=== PATIENT | male | born 1960 | race Caucasian/White ===

== ENCOUNTER 2024-08-04 13:25 | Inpatient (IN) | payer BC, SELFPAY ==
[2024-08-04] VITALS (16 sets, daily range): BP systolic 89–164; BP diastolic 69–107; BMI 21.3
[2024-08-04 11:41] LABS: % Basophils 0.9 % (0-2); % Eosinophils 4.8 % (0-6); % Immature Granulocytes 0.1 % (0-0.5); % Lymphocytes 49.5 % (20.5-51.1); % Monocytes 6.8 % (1.7-9.3); % Neutrophils 37.9 % (42.2-75.2); Absolute Basophils 0.1 10^3/uL (0-0.2); Absolute Eosinophils 0.4 10^3/uL (0-0.7); Absolute Lymphocytes 4.3 10^3/uL (1.2-3.4); Absolute Monocytes 0.6 10^3/uL (0.1-0.6); Absolute Neutrophils 3.3 10^3/uL (1.4-6.5); Hematocrit 45.5 % (39.0-52.0); Hemoglobin 15.7 g/dL (13.0-18.0); Mean Corp Hgb Conc. 34.5 g/dL (33.0-37.0); Mean Corpuscular Hgb 31.9 pg (27.0-31.0); Mean Corpuscular Volume 92.5 fL (80.0-94.0); Mean Platelet Volume 11.5 fL (7.4-10.4); Nucleated Red Blood Cells % 0 % (-); Platelet Count 226 10^3/uL (130-400); Red Blood Cell Count 4.92 10^6/uL (4.70-6.10); Red Cell Dist. Width 11.9 % (11.5-14.5); White Blood Cell Count 8.6 10^3/uL (4.8-10.8)
[2024-08-04 11:46] LABS: ALT (SGPT) 21 U/L (0-50); AST (SGOT) 22 U/L (17-59); Albumin 4.6 g/dl (3.5-5.0); Alkaline Phosphatase 67 U/L (38-126); Blood Urea Nitrogen 13 mg/dl (9-20); Calcium 9.8 mg/dl (8.4-10.2); Carbon Dioxide 29 mmol/L (22-30); Chloride 102 mmol/L (98-107); Glucose 111 mg/dl (70-99); Potassium 4.3 mmol/L (3.5-5.1); Sodium 140 mmol/L (135-145); Total Bilirubin 1.1 mg/dl (0.2-1.3); Total Protein 7.5 g/dl (6.3-8.2); eGFR > 60.00
[2024-08-04 12:00] LABS: Troponin I 0.127 ng/ml
[2024-08-04] MEDS: LOW STRENGTH ASPIRIN 324 MG PO (12:12)
--- NOTE | 2024-08-04 12:23 | ED.GENMED ---
History of Present Illness
General
Chief Complaint: Dizziness
Source: patient
Exam Limitations: none
Time Seen by Provider: 08/04/24 12:06
Nursing documentation reviewed up to this point in time: agreed with
History of Present Illness
History of Present Illness:
64 yo male with no PMHX presents for chest pain. 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 CP then was 4/10, now it's
2/10. Denies SOB, nausea, lightheadedness.
Past History
Past History
ED Past Medical History: None
ED Past Surgical History: None
Social History
Tobacco: Non-smoker
Alcohol: None
Personal: Partner
Review of Systems
Review of Systems
Allergies reviewed?: Yes
All Other Systems: ROS reviewed and negative except as documented in HPI and ROS
Constitutional: Denies fever or fatigue
Respiratory: Denies trouble breathing
Cardiac: Reports chest pain and diaphoresis; Denies palpitations or syncope
ABD/GI: Denies abdominal pain, nausea, vomiting or diarrhea
Musculoskeletal: Reports no symptoms
Skin: Reports no symptoms
Neurological: Reports no symptoms
Phy Exam
Physical Exam
Physical Exam:
GENERAL: No acute distress. A&Ox3.
CONSTITUTIONAL: Afebrile.
EYES: clear, conjunctivae normal
ENMT: moist mucus membranes, Pharynx nl
RESPIRATORY: Regular respirations, nonlabored, lungs clear.
CARDIOVASCULAR: Regular rate and rhythm, no murmurs, no rubs.
GI: Soft, nontender, normal BS
MUSCULOSKELETAL: Moves with ease. Well perfused.
SKIN: Warm, dry, pink
PSYCH: Normal mood and affect. Well kept, interactive and appropriate
NEUROLOGIC: Awake, alert and oriented. No focal neurological deficits
Course
Orders/Labs/Results
Orders:
Orders
08/04/24 11:11
Electrocardiogram (*1) Urgent
Reason for Study: Chest Pain
08/04/24 11:12
EKG- Treatment ONCE
08/04/24 11:21
Complete Blood Count/With Diff Urgent
Comprehensive Metabolic Panel Urgent
TSH Reflex To Free T4 Urgent
Troponin I Urgent
08/04/24 12:11
Aspirin Chewable [Low Strength Aspirin] 324 mg .ROUTE .STK-MED ONE
Aspirin Chewable [Low Strength Aspirin] 324 mg PO NOW STA
08/04/24 12:22
Electrocardiogram (*1) Urgent
Reason for Study: Chest Pain
EKG- Treatment ONCE
08/04/24 12:39
Heparin 4,000 units IV NOW STA
Nursing to Place Non Medication Order As Directed
Physician Order: PTT 6 hours after initial start of Heparin infusion
Above order entered?: Yes
08/04/24 12:45
Admit/Transfer Patient As Directed
Co-Sign Provider:
Level of Care: Inpatient admission
Assign to:: IVU
Physician / Group: CBC
Diagnosis: ACS
Reason for Hospitalization: ACS
Expected length of stay greater than two midnights?: Yes
ELOS- Estimated Length of Stay in days: 3
I certify the patient meets the requirements for IP care: Yes
Code Status As Directed
Resuscitation Status: Full Code
Heparin 63708 Units/250 ml 25,000 units in 250 ml IV PER PROTOCOL
Weight to be used for heparin protocol in kilograms (kg):: 67.4
Protocol:: Cardiac Tx/Acute Coronary
PTT Goal Range to be used:: PTT 73 to 111 seconds
Order type:: Initial
INITIAL Infusion Dose (UNITS/KG/hr) & then follow protocol:: 12 units/kg/hr
Infusion Dose in UNITS/hr & then follow protocol (UNITS/hr):: 800
INFUSION RATE in mL/hr & then follow protocol (mL/hr):: 8
PTT less than or equal to 64 seconds:: Increase rate by 200 units/hr (+ 2 mL/hr)
PTT 64.1 to 72.9 seconds:: Increase rate by 100 units/hr (+ 1 mL/hr)
PTT 73 to 111 seconds:: Target Range. No change in rate.
PTT 111.1 to 130.9 seconds:: Decrease rate by 100 units/hr (- 1 mL/hr)
PTT 131 to 199.9 seconds:: HOLD for 1 hr. Then decrease rate by 200 units/hr (- 2 mL/hr)
PTT greater than or equal to 200 seconds:: HOLD for 2 hrs & Notify Provider. Then decrease by 200 units/hr (-
2 mL/hr)
Lab follow-up:: Each change, PTT q6h until 2 consecutive are therapeutic. Then PTT
daily.
PRN Pain Medication Management As Directed
May give lesser potent ordered pain med per pt: Yes
preference::
Protocol:: Medication orders for pain may be administered in a
manner that supports deferring to patient preference
when the pt is:
- Requesting an ordered lesser potent pain medication.
Least to most potent pain medications are defined
as: acetaminophen < NSAID < tramadol < opioids
(morphine, oxycodone, hydromorphone).
- Requesting a lesser dose of the same medication IF
ORDERED.
- Requesting a less intrusive route of administration
if both routes are prescribed by the provider (PO <
IV).
08/04/24 12:48
Echo 2D MMode Color/Doppler Urgent
Reason for Study: Chest pain
08/04/24 12:53
Lorazepam [Ativan] 0.5 mg IV NOW STA
Nitroglycerin Sublingual [Nitrostat (Sublingual)] 0.4 mg SL NOW STA
Nitroglycerin Sublingual [Nitrostat (Sublingual)] 0.4 mg SL [id number] PRN
08/04/24 12:59
PTT Urgent
Comment: Obtain baseline before beginning heparin infusion if not already collected
08/04/24 13:00
Nitroglycerin 100 mg/250 ml [Nitroglycerin Premix] 100 mg in 250 ml IV PER PROTOCOL
Initial dose in mcg/min, then titrate:: 5
Titrate to keep:: Chest Pain Free
Titrate by mcg/min:: 5 mcg/min, may increase by 10 mcg/min if dose > 20 mcg/min
Frequency of titrations (minutes):: every 3-5 minutes
Maximum dose in mcg/min:: 200
Begin to taper infusion when:: Remained at goal for 2hrs
Taper by mcg/min:: 5 mcg/min
Frequency of taper (minutes) if patient maintains goal:: 30
Taper to off?: Yes
If infusion off & no longer maintaining goal:: Contact Provider
08/04/24 13:06
Heparin 1000 Units/500 ml [Heparin] 1,000 units in 500 ml .ROUTE .STK-MED
Heparin Sodium,Porcine/Ns/Pf [Heparin 2000 Units/1000 ml] 2,000 unit in 1,000 ml .ROUTE .STK-MED
Lidocaine HCl/Pf [Xylocaine-Mpf 1% Vial] 100 mg .ROUTE .STK-MED ONE
Nitroglycerin [Tridil] 1,500 mcg .ROUTE .STK-MED ONE
Verapamil Injectable [Isoptin/Verapamil Injection] 5 mg .ROUTE .STK-MED ONE
08/04/24 13:09
Fentanyl Citrate/Pf [Sublimaze] 100 mcg .ROUTE .STK-MED ONE
Heparin 10,000 units .ROUTE .STK-MED ONE
Midazolam HCl [Versed] 2 mg .ROUTE .STK-MED ONE
08/04/24 15:56
VTE Contraindication Routine
VTE Mechanical Device Contraindication: Medical Contraindication
Pharmocologic Contraindication: Medical Contraindication
Activity As Directed
Activity Level: Bathroom Privileges
ECG as needed As Directed
ECG as needed for:: Chest Pain
INT (Intravenous Needle Therapy) As Directed
Comment: maintain peripheral IV access
Vital Signs As Directed
Frequency: q4h
Weight As Directed
Frequency: Once
Type of Scale: Standing Scale
08/04/24 16:35
Acetaminophen [Tylenol] 650 mg PO Q4HPRN PRN
08/05/24 06:00
Basic Metabolic Panel IN AM
Cardiovascular Evaluation IN AM
Complete Blood Count/No Diff IN AM
Abnormal Lab Results
08/04/24
11:21
MCH 31.9 H pg
(27.0-31.0)
MPV 11.5 H fL
(7.4-10.4)
Absolute Lymphs (auto) 4.3 H 10^3/uL
(1.2-3.4)
Neutrophils % 37.9 L %
(42.2-75.2)
Glucose 111 H mg/dl
(70-99)
Troponin I 0.127 H* ng/ml
08/04/24 11:21
08/04/24 11:21
Vital Signs
Initial and Last Documented VS:
Initial Vital Signs
Temp Pulse Resp BP Pulse Ox
98.4 F 75 18 144/84 99
08/04/24 11:16 08/04/24 11:16 08/04/24 11:16 08/04/24 11:16 08/04/24 11:16
Last Documented Vital Signs
Temp Pulse Resp BP Pulse Ox
98.4 F 90 21 160/105 99
08/04/24 11:16 08/04/24 12:45 08/04/24 12:45 08/04/24 13:12 08/04/24 12:45
MDM/Problems Addressed
Differential Diagnosis Includes:
ACS, angina,
MDM/Problems Addressed:
64 yo male with no PMHX presents for chest pain. 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 CP then was 4/10, now it's
2/10. Denies SOB, nausea, lightheadedness.
EKG sinus rhythm with PACs
12:10 PM:
CBC unremarkable
CMP unremarkable
Troponin elevated at 0.127
Patient still with chest pain although it is improving, aspirin given
12:30 p.m.
Repeat EKG unchanged. Both EKGs sent to cardiology Dr. Abad with consult request
Cardiology at bedside
*Critical Care Note
Total Time (30-74mins, 75-104mins- exclusive of procedures): Not Applicable
ED Attending Note
-
Portions of this chart may have been created with voice recognition software.� Occasional wrong word or��sound alike� substitutions may have occurred due to the inherent limitations of voice recognition software.
Discharge Plan
Departure
Patient Disposition: Admit
Date of Disposition: 08/04/24
Time of Disposition: 12:42
Presentation/result/management discussed w/ accepting MD/DO: Pollo
Condition: Serious
Discharge Problem:
Acute non-ST elevation myocardial infarction (NSTEMI)
Interventions
Interventions:
*Risk Screen - Suicide Last Done: 08/04/24 11:16
*General Assessment Last Done: 08/04/24 11:16
*Neglect/Abuse Screening Last Done: 08/04/24 11:16
*ED COVID-19 Vaccine History Last Done: 08/04/24 11:16
*Nursing Disposition Last Done: 08/04/24 13:53
ED- Neurological Assessment Last Done: 08/04/24 12:20
ED Swallowing Screen Last Done: 08/04/24 12:20
Discharge Date and Time
Discharge Date/Time: 08/04/24 13:53
[2024-08-04] MEDS: HEPARIN 4000 UNITS IV (13:08)
[2024-08-04] MEDS: NITROSTAT (SUBLINGUAL) 0.4 MG SL (13:12)
[2024-08-04] MEDS: ATIVAN 0.5 MG IV (13:12)
--- NOTE | 2024-08-04 13:46 | HPS.HSE ---
Addendum entered and electronically signed by Ceasar Abad MD 08/04/24 15:18:
I saw and examined the patient.
The TRAVEL PHYSICAL THERAPIST's note was reviewed and I agree with the note.
Comment:
64-year-old male with history of untreated high blood pressure and former smoker (20+ years ago, [id number]) who presents with chest pain radiating to right shoulder for past 2 hours. Started while he was walking his dogs and he thought it was
due to a weight lifting exercise that he did yesterday. He tried some Nexium but it continued to intensify so he presented to the ER. In the ER he was given 325 mg aspirin. At the time of my assessment his chest discomfort had decreased from 4/10
to 2/10. On exam he was well-appearing, cardiovascular exam with regular rate and rhythm and no murmurs, lungs clear to auscultation bilaterally, no lower extremity edema. Labs notable for creatinine 0.8, troponin 0.127. Initial ECG showed normal
sinus rhythm with PAC and nonspecific ST-T wave changes. Subsequent ECG 1 hour later showed normal sinus rhythm with PACs and subtle sub-[address] elevations. He was started on heparin and nitro drips. He will be admitted to the cardiology
service and taken for left heart catheterization as an urgent NSTEMI. Plan discussed with bedside nurse, patient and his , and interventional cardiology.
Original Note:
Family Physician
-
Family Physician: Smooth Ng DO
Chief Complaint
-
Chest discomfort
History of Present Illness
Paul Solomon is a 64-year-old male without a significant past medical history other than some elevated blood pressures found by his PCP and a former smoker who presented to the emergency department with a chief complaint of chest discomfort. This
morning, approximately 2 hours prior to arrival he developed midsternal anterior chest burning. It radiated down into his right arm. He endorsed associated diaphoresis. At its worst it was 4/10 in severity. Chest pain improved in the emergency
department but did not completely resolved. He was given aspirin. Initial EKG sinus rhythm with PACs. EKG one hour later showed inferior T wave changes. Initial troponin 0.127. At the time of exam, he was still having chest discomfort. He was
given one sublingual nitroglycerin and a heparin bolus followed by the initiation of a heparin drip.
Medical History
Past Medical History
Past Medical History: Reports Psychiatric (Anxiety)
Past Surgical History: Reports None
Social History
Tobacco: Former Smoker
Alcohol: None
Personal: (Rudolph)
Living: With Family
Family History
Family History: Early CAD (Grandfather with [place] and under the age of 50)
Allergies / Home Medications
Allergies reflects when Allergies were last updated in [facility].
Home Medications with original date entered in [facility]
Allergy/Medication List:
Allergies:
Denies food and drug allergies.
Home medication list:
Mylanta 5 mg p.o. daily, as needed for heartburn
Vitamin B12 1000 mcg p.o. daily
Review of Systems
-
A 12 point ROS was completed and negative except as noted: Yes
Constitutional: Reports No Symptoms
EENT: Reports No Symptoms
Respiratory: Reports No Symptoms
Cardiac: Reports See HPI
Abdomen/GI: Reports No Symptoms
: Reports No Symptoms
Musculoskeletal: Reports No Symptoms
Skin: Reports No Symptoms
Neurological: Reports No Symptoms
Endocrine: Reports No Symptoms
Hematologic/Lymphatic: Reports No Symptoms
Psych: Reports No Symptoms
Physical Exam
Vital Signs
Vital Signs
Temp Pulse Resp BP Pulse Ox
98.4 F 90 21 160/105 99
08/04/24 11:16 08/04/24 12:45 08/04/24 12:45 08/04/24 13:12 08/04/24 12:45
Physical Exam
General: Well Developed, Well Nourished, No Apparent Distress and Comfortable
HEENT: NormoCephalic, Anicteric and Moist mucous membranes
Respiratory: Clear and Non Labored Respirations
Cardiac: S1/S2 and Regular Rhythm; No Peripheral Edema
Breast: Deferred by me
GI: Soft, Non Tender, Non Distended and Normal Bowel Sounds
Rectal: Deferred by Provider
Genito-urinary: No costovertebral tender
Musculoskeletal: No Clubbing, No Cyanosis and No Edema
Skin: Warm and Dry
Neuro: AO x 3
Psych: Intact Judgment/Insight
Laboratory Results
-
08/04/24 11:21
08/04/24 11:21
Laboratory Results
APTT 25.0 Sec (23.4-35.0) 08/04/24 12:59
Total Bilirubin 1.1 mg/dl (0.2-1.3) 08/04/24 11:21
AST 22 U/L (17-59) 08/04/24 11:21
ALT 21 U/L (0-50) 08/04/24 11:21
Alkaline Phosphatase 67 U/L (38-126) 08/04/24 11:21
Troponin I 0.127 ng/ml H* 08/04/24 11:21
Data Reviewed
-
Diagnostic Radiology: Report Reviewed by me (EKGs as above)
Lab Data: Labs Reviewed by me
Old Records: Reviewed
Impression/Plan
-
IMPRESSION/PLAN: 64M with elevated outpatient BPs, former smoker, and family history of premature CAD presents with chest discomfort
ACS
-Troponin of 0.127 with EKG changes
-He was given ASA 325 mg in ER, start heparin drip with bolus
-Cardiac catheterization today
-Echocardiogram
-Fasting lipid panel in a.m. & add on HgbA1c
Elevated BPs -> he has hypertension
-Nitroglycerin drip for now given his chest discomfort, will start agent after cardiac catheterization
[2024-08-04 14:16] LABS: ACT-LR - POC 284 Seconds (116-155)
[2024-08-04 15:08] LABS: ACT-LR - POC > 397 Seconds (116-155)
[2024-08-04 15:25] LABS: ACT-LR - POC 329 Seconds (116-155)
--- NOTE | 2024-08-04 16:45 | PTCARENOTE ---
Rec'd report from Ling in the collaborative teacher; Rec'd pt AAOx3 w/no c/o SOB, pt does c/o 1-07/20 intermittent CP. Pt reports that the pain is improved from when he arrived. Pt's VSS w/HR in the 90's & BP 127/81 on arrival. Pt is SR/ST w/freq PVC's. Pt w/R
radial band on w/no signs of bleeding or hematoma. Pt advised of activity restrictions & plan of care. Call king within reach.
--- NOTE | 2024-08-04 17:38 | ITS.CL.PN ---
Farm Manager - Procedure Note
Procedure
Procedure Note:
CARDIAC CATHETERIZATION REPORT
Date of Procedure: 08/04/2024
Referring: Dr. Nano Bravo MD
Indication: NSTEMI
PROCEDURE(S)
1. left heart catheterization
2. coronary angiography
3. PCI with FIDENCIO for acute WY, RPDA
4. PCI with FIDENCIO for acute [place], RCA to RPAV
5. IVUS RPDA
6. IVUS RCA
7. iFR LAD
ACCESS: 6F right radial artery (closure: radial band)
CATHETERS
1. 6F JR4
2. 6F JL3.5
3. 6F JR4 guide catheter
MODERATE SEDATION: 120 minutes of moderate sedation was utilized. An independent internist medical doctor md was present to assist with and help manage the patient's level of consciousness and physiologic status.
ULTRASOUND GUIDED VASCULAR ACCESS (right radial artery): Ultrasound was utilized for vascular access. The vessel was visualized under ultrasound and noted to be patent. An image of the vessel was stored permanently in the patient's medical record.
Under direct ultrasound guidance, vascular access was obtained using a modified Seldinger technique and a 6 Divehi sheath was placed.
HEMODYNAMIC DATA
LV 120/8 (EDP 13) mmHg
AO 119/70 (mean 92) mmHg
CORONARY ANGIOGRAPHY
Dominance: right
LM: Large vessel with minimal disease
LAD: Large vessel giving rise to a moderate caliber D1 and moderate caliber D2 and wrapping around the apex. There is a long segment of severe disease in the D1 up to 80-90%. The proximal to mid LAD has long segment diffuse mild to moderate
disease that was assessed further with iFR.
LCx: Moderate caliber vessel giving rise to a large OM1 and large branching OM2. There is a long 80-90% stenosis in the proximal aspect of the OM1. There are serial moderate stenoses up to 70% in the midportion of the OM2.
RCA: Large vessel giving rise to a moderate caliber RPDA and large RPL branch. There is a 100% stump occlusion of the RPDA with MICHELINE 0 flow. There is diffuse high-grade disease throughout the proximal to mid RCA. The RPL has a focal 50% stenosis
in the distal aspect of the vessel.
PCI with FIDENCIO for acute WY to RPDA, RPAV, and RCA
Given the presentation consistent with acute WY in the setting of 100% occluded RPDA, the decision was made to proceed with culprit artery revascularization with plan to subsequently assess the hemodynamic significance of the LAD with iFR to guide
nonculprit revascularization plans (i.e., staged PCI of circumflex if LAD iFR negative versus staged CABG of LAD and circumflex if LAD iFR positive). The RCA was engaged with a JR4 guide catheter and Runthrough coronary wires placed in the distal
RPDA and RPL branches. Initial lesion preparation of the RPDA was performed with a 2.0 mm semicompliant balloon with jain of MICHELINE II flow in the RPDA but plaque shift causing MICHELINE 0 flow in the RPL branch. The patient developed chest pain
and ST elevations. Balloon angioplasty was performed to the proximal RPAV with jain of flow. Integrilin was started. Chest pain and ST elevations improved. Given the involvement of the proximal RPAV and its large size, the decision was
made to perform a dedicated DK-crush bifurcation stenting with the RPDA as the side branch and RCA to RPAV as the main branch followed by distal to proximal stenting of the remainder of the heavily diseased RCA. After additional lesion preparation
of the RCA with a 2.5x12 mm semicompliant balloon, a 2.0x22 mm Shen Barton drug-eluting stent was delivered and deployed in the RPDA with several mm protrusion into the distal RCA after which it was crushed with a preplaced 2.5x12 mm balloon
pulled back from the RPAV. There was noted to be no reflow in the RPDA. Intracoronary verapamil was given with jain of MICHELINE-3 flow. The RPDA wire was removed and rewired through a non-distal stent strut after which first kissing balloon
inflation was performed with 2.25 and 2.5 mm balloons with simultaneous inflation and deflation. The RPDA wire was again removed and main vessel stenting was performed with a 2.5 x 38 mm [place] Xience drug-eluting stent. POT was performed with a
3.5 x 12 NC balloon to high pressure. The mid to proximal RCA was overlapped with a 3.5 x 38 mm [place] frontier drug-eluting stent. The RPDA was again rewired, this time through a distal stent strut. After stent strut opening with a 1.5x12 mm
balloon, second kissing balloon inflation was performed with 2.25 and 2.5 mm semicompliant balloons. IVUS was performed over the wire to the RPAV but would not cross distal to the bifurcation. There was not noted to be significant under expansion,
and this was likely due to interaction of the IVUS catheter with the neocarina. Given excellent angiographic appearance of the RPAV stent, further attempts at IVUS deliver were not performed. IVUS was then performed over the RPDA wire with pullback
demonstrating appropriate distal stent edge sizing with no distal stent edge dissection, full stent coverage of the bifurcation, full stent expansion and apposition all the way back to the proximal RCA. There were a few areas of mild underexpansion
in the mid RCA, so post dilation was performed throughout the RCA with the 3.5 NC balloon taken to 16 ileaan with full expansion. Final angiographic result was excellent. The wire and guide were removed and the left main was engaged with an XB3 5
guide catheter so that iFR of the LAD could be performed as planned.
iFR of LAD
An Omni wire was flushed and zeroed outside the body and then advanced to the left main. The wire introducer was removed and the catheter flushed with saline, after which pressure of the wire and guide were normalized. The wire was advanced to the
mid LAD and iFR recorded 0.81. iFR pullback was performed noting a diffuse pattern of IFR positivity from the mid LAD all the way back to the ostial LAD. On return to the left main, iFR appropriately normalized to ~1.0, confirming lack of wire drift.
RADIATION: dose 1637.82 mGy; DAP 77.9648 Gy*cm2; fluoroscopy time 40.7 min
CONCLUSIONS
1. Severe triple-vessel coronary artery disease as described with culprit 100 percent occlusion of the ostial RPDA.
2. Successful IVUS-guided PCI to the RPDA/RPAV bifurcation with DK crush (2.0x22 mm [place] FIDNECIO to RPDA and 2.5x38 mm [place] Xience FIDENCIO to distal RCA into RPAV, KBI with 2.25 and 2.5 mm balloons) overlapped proximally with a 3.5x38 mm Shen
Barton drug-eluting stent from the proximal to mid RCA post-dilated throughout with a 3.5 mm NC balloon.
3. Mildly elevated LV filling pressure and no aortic stenosis.
RECOMMENDATIONS
1. expectant management after cardiac catheterization via right radial approach
2. DAPT with aspirin and ticagrelor
3. outpatient referral to CT surgery for consideration of CABG to OM branches, LAD, and possibly D1. This would need to be performed after at least 1 month of uninterrupted DAPT, preferably 3 months. Percutaneous revascularization although
feasible, would provide a less optimal result given the patient's young age and long segment LAD disease
4. aggressive secondary prevention of coronary artery disease and risk factor modification
5. echo in AM
6. eventual cardiac rehab after full revascularization
Copy to: Dr. Smooth Ng DO (PCP)
Signed: Thee Rea MD, PhD
[2024-08-04] MEDS: LIPITOR 40 MG PO (17:51)
[2024-08-04] MEDS: DIOVAN 60 MG PO (17:52)
--- NOTE | 2024-08-04 17:59 | W.PN.UPDATE ---
Update Note
Progress Note Update
Patient s/p LHC and FIDENCIO to RCA. iFR + LAD on cath. Patient will be DAPT. Appointment with Dr. Conway was made for September 01 @ 930 for CABG evaluation. Card was given to patient and appointment was placed in discharge instructions.
[2024-08-04] MEDS: LOPRESSOR 12.5 MG PO ×2 (19:37→21:08)
[2024-08-04 21:28] LABS: Blood Urea Nitrogen 13 mg/dl (9-20); Calcium 9.4 mg/dl (8.4-10.2); Carbon Dioxide 24 mmol/L (22-30); Chloride 99 mmol/L (98-107); Estimated Creatinine Clearance 119 ml/min; Glucose 139 mg/dl (70-99); Potassium 4.1 mmol/L (3.5-5.1); Sodium 134 mmol/L (135-145); eGFR > 60.00
[2024-08-04] MEDS: AMBIEN 5 MG PO (22:19)
--- NOTE | 2024-08-04 22:43 | PTCARENOTE ---
Received patient at change of shift. ST on the monitor, HR in the 100s. Patient had a 29 beat run of Vtach which broke by itself. Pt was asymptomatic and his HR went back to ST in the 100s. BP 122/96. Dr. Abad made aware, metoprolol dose
increased and labs ordered. No complaints from pt at this time, call king within reach.
[2024-08-05 02:26] VITALS: BP 130/75
[2024-08-05 03:07] LABS: Hematocrit 41.3 % (39.0-52.0); Hemoglobin 14.5 g/dL (13.0-18.0); Mean Corp Hgb Conc. 35.1 g/dL (33.0-37.0); Mean Corpuscular Hgb 32.7 pg (27.0-31.0); Mean Platelet Volume 11.9 fL (7.4-10.4); Platelet Count 218 10^3/uL (130-400); Red Blood Cell Count 4.44 10^6/uL (4.70-6.10); Red Cell Dist. Width 11.9 % (11.5-14.5)
[2024-08-05 03:32] LABS: Blood Urea Nitrogen 12 mg/dl (9-20); Calcium 9.5 mg/dl (8.4-10.2); Carbon Dioxide 26 mmol/L (22-30); Chloride 101 mmol/L (98-107); Estimated Creatinine Clearance 119 ml/min; Glucose 122 mg/dl (70-99); HDL Cholesterol 39 mg/dl; LDL Cholesterol, Calculated 124 mg/dl; Potassium 3.9 mmol/L (3.5-5.1); Sodium 138 mmol/L (135-145); Total Cholesterol 223 mg/dl (50-199); Triglyceride 302 mg/dl (10-149); Very Low Density Lipoprotein 60 mg/dl (0-30); eGFR > 60.00
[2024-08-05 04:21] LABS: Hepatitis C Antibody Negative (Negative)
[2024-08-05 06:45] VITALS: BP 125/78
[2024-08-05 07:55] LABS: ACT-LR - POC > 397 Seconds (116-155)
[2024-08-05] MEDS: BRILINTA 90 MG PO ×2 (09:13→19:50)
[2024-08-05] MEDS: LOPRESSOR 25 MG PO ×2 (09:13→10:16)
[2024-08-05] MEDS: LOW STRENGTH ASPIRIN 81 MG PO (09:13)
[2024-08-05] MEDS: DIOVAN 60 MG PO (09:14)
[2024-08-05] MEDS: KCL 20 MEQ PO (09:14)
[2024-08-05 09:41] LABS: Glycohemoglobin (HgbA1c) 5.2 % (4.0-5.6)
--- NOTE | 2024-08-05 10:01 | W.PN.CARDCBS ---
Addendum entered and electronically signed by Ceasar Abad MD 08/05/24 10:57:
I saw and examined the patient.
The ACCELERATOR TECHNICIAN's note was reviewed and I agree with the note.
Comment:
64-year-old male with history of untreated high blood pressure and former smoker (20+ years ago, [id number]) who presented with chest pain found to have inferior STEMI and multivessel CAD, s/p PCI with 3 stents to RCA/RPDA. He is chest pain-free
on my assessment today. Exam notable for well-appearing male, cardiovascular exam with regular rate and rhythm and no murmurs, radial cath site is soft and nontender, lungs are clear to auscultation bilaterally, and he has no lower extremity edema.
ECG this morning with inferior Q waves and T wave inversions. Echo with normal LVEF and inferior/inferolateral wall motion abnormalities. Telemetry reveals asymptomatic 29 beat run of NSVT overnight. For his multivessel CAD with recent PCI, he
is on aspirin and Brilinta which will be continued on discharge. He has also been started on atorvastatin 80 mg daily and has planned CT surgery evaluation for possible CABG on 09/01/2024. We should stop trending troponins. For his NSVT and recent
ACS, he is on metoprolol which we will increase to 50 mg twice daily. He has also been started on valsartan 60 mg daily for hypertension. He will be here for the next 24 hours for monitoring after complex PCI and can likely be discharged tomorrow.
I will request outpatient follow-up with me.
Original Note:
Today's Communication / Plan
-
Trend troponin to peak
echo today
cardiac rehab
monitor tele another 24-48h
outpt CT surgical consult at d/c
followup at [facility]
Impression / Plan
-
PCP: Smooth Ng MD
CDY: Ceasar Abad MD
64 y/o presented to ER with several hours exertional chest pain radiating to RUE. First EKG WNL but subsequent EKGs with inferior ST elevations, and first troponin 0.127.
[facility] 08/04- prox-mid LAD long diffuse mild-mod, iFR (+)
long segment D1 80-90%
prox OM1 80-90%, mid OM2 70%
RPDA 100% stump occulsion
diffuse high grade prox-mid RCA
distal RPL 50%
S/P IVUS guided PCI to RPDA/RPAV bifurcation w/DK crush and 2 FIDENCIO, overlapping with prox-mid RCA FIDENCIO
IMPRESSION/PLAN:
Inferior STEMI
s/p complex RCA PCI w/3 FIDENCIO
tele- NSR w/frequent NSVT 3-30bts- asymptomatic, rates 90-100s
radial cath site stable
troponin 19.3, trending to peak
DAPT w/asa, brilinta- CM to check coast
Will increase metoprolol tartrate to 50mg BID for HR control, VT
replace lytes as needed
continue diovan- BP tolerating
echo today
cardiac rehab consult
Residual CAD to LAD/D1/OM1- Long LAD lesions was flow limiting with iFR
outpt CT surgery consult for surgical revascularization, preferably after 1-3 months on uninterrupted DAPT.
cardiology followup at [facility]
HLD- lipid profile noted
high intensity statin therapy with atorvastatin 80mg started
Progress Note - Environmental Health Specialist
Subjective
Date of Service: August 05, 2024
Post procedure chest discomfort overnight but improved today- no worse with ambulating
no dyspnea/palps
cath site without pain
oob ambulating in room
Objective
Labs:
08/05/24 02:34
08/05/24 02:34
Labs
Hgb 14.5 g/dL (13.0-18.0) 08/05/24 02:34
Hct 41.3 % (39.0-52.0) 08/05/24 02:34
Plt Count 218 10^3/uL (130-400) 08/05/24 02:34
APTT 25.0 Sec (23.4-35.0) 08/04/24 12:59
Sodium 138 mmol/L (135-145) 08/05/24 02:34
Potassium 3.9 mmol/L (3.5-5.1) 08/05/24 02:34
BUN 12 mg/dl (9-20) 08/05/24 02:34
Creatinine 0.6 mg/dL (0.7-1.3) L 08/05/24 02:34
Glucose 122 mg/dl (70-99) H 08/05/24 02:34
Troponins
08/04/24 08/04/24 08/04/24
11:21 14:00 15:55
Troponin I 0.127 H* Cancelled 3.520 H* D
08/04/24 08/05/24
18:00 09:10
Troponin I Cancelled 19.300 H*
Vital Signs and I&O:
Vital Signs
Temp Pulse Resp BP Pulse Ox
98.7 F 80 16 125/78 97
08/05/24 06:43 08/05/24 07:30 08/05/24 06:43 08/05/24 06:45 08/05/24 06:43
Vital Signs
Temp Pulse Resp BP Pulse Ox
98.7 F 80 16 125/78 97
08/05/24 06:43 08/05/24 07:30 08/05/24 06:43 08/05/24 06:45 08/05/24 06:43
Intake & Output
08/03/24 08/04/24 08/05/24 08/06/24
06:59 06:59 06:59 06:59
Intake Total 980 / 980
Balance 980 / 980
Physical Exam
Physical Exam
AAOx3, MAEE 5/5
RRR S1 S2 no murmurs
CTA bilat, non labored
soft abd,+ bs
right radial cath site without ht/bleeding, non tender
bilat extremities w/palpable distal pulses, no edema
[2024-08-05 10:14] LABS: Magnesium 2.1 mg/dl (1.6-2.3)
[2024-08-05 11:30] VITALS: BP 137/87
[2024-08-05 12:03] VITALS: BMI 23.1
--- NOTE | 2024-08-05 12:03 | CM ---
Priced Brilinta thru patient's insurance, .
Estimated cost of Brilinta would be $323/mo.
Pt. has a high deductible of $6000/yr. which includes both medical and medication.
Pt. would qualify for a reduced monthly co pay coupon thru [employer]. This would decrease his copay by $200.
I met w/ patient and sig. other at bedside to update on this. He is aware/agreeable to copay.
--- NOTE | 2024-08-05 12:06 | CM ---
CM following for DC planning needs.
Met w/ patient and sig. other at bedside to complete initial assessment.
Pt. resides w/ sig. other in a private, 2 story home. He is functionally indep. at baseline w/ ADLs, mobility without the use of any assisted device.
Pt. has RX plan.
Anticipated DC plan is for home, no needs.
Will cont. to follow for any needs that may arise.
[2024-08-05 15:52] VITALS: BP 136/91
[2024-08-05] MEDS: LIPITOR 80 MG PO (18:26)
[2024-08-05 19:49] VITALS: BP 157/84
[2024-08-05] MEDS: LOPRESSOR 50 MG PO (19:50)
[2024-08-05 22:13] VITALS: BP 156/82
[2024-08-05] MEDS: AMBIEN 5 MG PO (22:13)
--- NOTE | 2024-08-05 22:38 | PTCARENOTE ---
Received patient at change of shift. SR on the monitor, HR in the 80s. R radial site RAFFAELE and intact. No complaints from pt at this time, call king within reach.
[2024-08-06] VITALS (8 sets, daily range): BP systolic 121–162; BP diastolic 87–109
[2024-08-06 03:24] LABS: Hematocrit 41.8 % (39.0-52.0); Hemoglobin 14.5 g/dL (13.0-18.0); Mean Corp Hgb Conc. 34.7 g/dL (33.0-37.0); Mean Corpuscular Hgb 32.3 pg (27.0-31.0); Mean Corpuscular Volume 93.1 fL (80.0-94.0); Mean Platelet Volume 12.1 fL (7.4-10.4); Platelet Count 210 10^3/uL (130-400); Red Blood Cell Count 4.49 10^6/uL (4.70-6.10); Red Cell Dist. Width 11.9 % (11.5-14.5); White Blood Cell Count 8.3 10^3/uL (4.8-10.8)
[2024-08-06 03:53] LABS: Blood Urea Nitrogen 11 mg/dl (9-20); Calcium 9.9 mg/dl (8.4-10.2); Carbon Dioxide 26 mmol/L (22-30); Chloride 103 mmol/L (98-107); Estimated Creatinine Clearance 96 ml/min; Glucose 118 mg/dl (70-99); Potassium 4.2 mmol/L (3.5-5.1); Sodium 138 mmol/L (135-145); eGFR > 60.00
--- NOTE | 2024-08-06 07:27 | W.PN.CD ---
Today's Communication / Plan
-
discharge to home on current med regimen
cards and CTS follow up schedule for 1 month
Impression / Plan
-
PCP: Smooth Ng MD
CDY: Ceasar Abad MD
64 y/o presented to ER with several hours exertional chest pain radiating to RUE. First EKG WNL but subsequent EKGs with inferior ST elevations, and first troponin 0.127.
[facility] 08/04- prox-mid LAD long diffuse mild-mod, iFR (+)
long segment D1 80-90%
prox OM1 80-90%, mid OM2 70%
RPDA 100% stump occlusion
diffuse high grade prox-mid RCA
distal RPL 50%
S/P IVUS guided PCI to RPDA/RPAV bifurcation w/DK crush and 2 FIDENCIO, overlapping with prox-mid RCA FIDENCIO
IMPRESSION/PLAN:
Inferior STEMI
s/p complex RCA PCI w/3 FIDENCIO
tele- NSR w/frequent rare short runs of NSVT
radial cath site stable
troponin peak 19.3
DAPT w/asa, Brilinta- CM to check coast
Will increase metoprolol tartrate to 50mg BID for HR control, NSVT
replace lytes as needed
continue diovan- BP tolerating
echo today
cardiac rehab consult
Residual CAD to LAD/D1/OM1- Long LAD lesions was flow limiting with iFR
outpt CT surgery consult for surgical revascularization, preferably after 1-3 months on uninterrupted DAPT.
[facility]
HLD- lipid profile noted
high intensity statin therapy with atorvastatin 80mg started
TTE 08/05/2024
Normal biventricular size and systolic function without regional wall motion
abnormality. LVEF 55-60%.
Mild hypokinesis of the basal to mid inferior and inferolateral aguilar.
No significant valvular disease.
Physical Exam
Vital Signs/Labs
Vital Signs
Temp Pulse Resp BP Pulse Ox
36.4 C 81 18 121/87 99
08/06/24 02:56 08/06/24 05:30 08/06/24 02:56 08/06/24 02:42 08/06/24 02:56
08/05/24 08/06/24 08/07/24
06:59 06:59 06:59
Actual Weight 67.4 kg 65 kg
08/06/24 02:53
08/06/24 02:53
APTT 25.0 Sec (23.4-35.0) 08/04/24 12:59
Magnesium 2.1 mg/dl (1.6-2.3) 08/05/24 02:34
Triglycerides 302 mg/dl (10-149) H 08/05/24 02:34
LDL Cholesterol, Calc 124 mg/dl 08/05/24 02:34
VLDL Cholesterol, Calc 60 mg/dl (0-30) H 08/05/24 02:34
HDL Cholesterol 39 mg/dl 08/05/24 02:34
LAB Results
08/04/24 08/04/24 08/04/24
11:21 14:00 15:55
Troponin I 0.127 H* Cancelled 3.520 H* D
08/04/24 08/05/24 08/05/24
18:00 09:10 16:02
Troponin I Cancelled 19.300 H* 16.300 H*
Physical Exam
Constitutional: No acute distress
Cardiovascular: Rhythm & rate is regular
Respiratory: Respiratory effort normal
Neuro/Psych: AO x 3
Data Reviewed
-
Date of Service: August 06, 2024
Medical Decision Making: Reviewed Test Results
EKG: Tracing Personally Visualized and interpreted
Echo: Tracing Personally Visualized and interpreted
Labs: Labs Reviewed by me
[2024-08-06] MEDS: LOW STRENGTH ASPIRIN 81 MG PO (07:56)
[2024-08-06] MEDS: LOPRESSOR 50 MG PO (07:56)
[2024-08-06] MEDS: DIOVAN 60 MG PO (07:56)
[2024-08-06] MEDS: BRILINTA 90 MG PO (07:56)
--- NOTE | 2024-08-06 11:21 | CM ---
CM following for DC planning needs.
Met w/ patient, sig. other at bedside.
Plan is for DC to home. No issues or needs reported.
I have called [facility] and confirmed that Tommy is in stock.
Pt. anticipates that he will return for CT Surgery.
Plan now is for home, no needs.
[2024-08-06] MEDS: DIOVAN 80 MG PO (11:27)
--- NOTE | 2024-08-06 11:30 | PTCARENOTE ---
Assumed care of pt from night RN. Pt received awake and alert, Ox3. VSS, CM shows NSR 80's, POX 98% on RA. Right wrist site CDI with normal CMS. B/P 160's over 100's. Tammy Mario made aware. Additional dose of Valsartan given as per Aug, will
re-check B?P in 2 hours before D/C/.
--- NOTE | 2024-08-06 13:51 | PTCARENOTE ---
All D/C info reviewed with pt, all questions answered. Pt D/C'd home with friend.
--- NOTE | 2024-08-06 14:52 | W.DS.TRANS ---
DC Summary - Slash Trimmer
-
Discharge Instructions:
Discharge Diagnosis/Procedures NSTEMI, Angioplasty with stent to RCA x 3
Diet Low Cholesterol
Activity No strenuous activity
Additional Activity until after cardiac surgery and full
revascularization
Driving Restrictions No driving for 24 hours
Blood Work Check BMP in 2 weeks
Other Services Cardiac Rehab
Instructions:
Stand-Alone Forms: DC Instructions- Cath/EP Lab
Changes to Home Medications: Yes
Discharge Medications:
DC Medications w/original date entered in [employer]
aluminum-mag hydroxide-simethicone 200 mg-200 mg-20 mg/5 mL oral susp 5 ml PO DAILYPRN PRN heartburn 08/04/24
cyanocobalamin (vitamin B-12) 1,000 mcg tablet 1,000 mcg PO DAILY Supplement 08/04/24
zolpidem 10 mg tablet (Ambien) 5 mg PO HS Sleep 08/04/24
aspirin 81 mg chewable tablet 81 mg PO DAILY #1 tab 08/06/24
atorvastatin 80 mg tablet 80 mg PO QPM #90 tabs 08/06/24
metoprolol tartrate 50 mg tablet 50 mg PO BID #60 tabs 08/06/24
nitroglycerin 0.4 mg sublingual tablet 0.4 mg sublingual [id number] PRN Chest pain #25 tabs 08/06/24
ticagrelor 90 mg tablet (Brilinta) 90 mg PO BID #60 tabs 08/06/24
valsartan 160 mg tablet 160 mg PO DAILY #30 tabs 08/06/24
Home Medication Changes
all new except ambien, maalox and vit b12
Pending Results: No
== END 2024-08-06 13:52 | disposition home or self-care (01) | DRG 322 ==
LOC: IVU 13:25
PROVIDERS: Nurse Practitioner; Nurse Practitioner Gerontology; Registered Nurse; Student in an Organized Health Care Education/Training Program; ADMITTING PHYSICIAN Student in an Organized Health Care Education/Training Program; EMERGENCY PHYSICIAN Student in an Organized Health Care Education/Training Program; FAMILY PHYSICIAN Student in an Organized Health Care Education/Training Program
PROC: B211YZZ Fluoroscopy of Multiple Coronary Arteries using Other Contrast (ICD-10-PCS; 2024-08-04)
PROC: 4A023N7 Measurement of Cardiac Sampling and Pressure, Left Heart, Percutaneous Approach (ICD-10-PCS; 2024-08-04)
PROC: 0272366 Dilation of Coronary Artery, Three Arteries, Bifurcation, with Three Drug-eluting Intraluminal Devices, Percutaneous Approach (ICD-10-PCS; 2024-08-04)
PROC: B241ZZ3 Ultrasonography of Multiple Coronary Arteries, Intravascular (ICD-10-PCS; 2024-08-04)
PROC: 4A033BC Measurement of Arterial Pressure, Coronary, Percutaneous Approach (ICD-10-PCS; 2024-08-04)
DX: I21.19 ST elevation (STEMI) myocardial infarction involving other coronary artery of inferior wall (principal); I47.29 Other ventricular tachycardia; I10 Essential (primary) hypertension; I25.10 Atherosclerotic heart disease of native coronary artery without angina pectoris; E78.5 Hyperlipidemia, unspecified; F41.9 Anxiety disorder, unspecified; Z82.49 Family history of ischemic heart disease and other diseases of the circulatory system; Z87.891 Personal history of nicotine dependence
CPT/HCPCS: 76937; 80048; 80053; 80061; 83036; 83735; 84443; 84484; 85025; 85027; 85347; 85730; 86803; 92978; 93005; 93306; 93458; 93799; 99152; 99153; 99285; C1725; C1753; C1769; C1874; C1887; C1894; C9601; C9606; J1327

== ENCOUNTER → 2024-08-21 09:37 | Outpatient (REF) | payer BC, SELFPAY ==
[2024-08-21 11:53] LABS: Blood Urea Nitrogen 14 mg/dl (9-20); Calcium 9.6 mg/dl (8.4-10.2); Carbon Dioxide 30 mmol/L (22-30); Chloride 100 mmol/L (98-107); Glucose 100 mg/dl (70-99); Potassium 4.8 mmol/L (3.5-5.1); Sodium 139 mmol/L (135-145); eGFR > 60.00
== END ==
LOC: REG 09:37
PROVIDERS: ATTENDING PHYSICIAN Nurse Practitioner Adult Health; FAMILY PHYSICIAN Student in an Organized Health Care Education/Training Program; REFERRING PHYSICIAN Student in an Organized Health Care Education/Training Program
DX: I21.4 Non-ST elevation (NSTEMI) myocardial infarction (principal)
CPT/HCPCS: 36415; 80048

== ENCOUNTER → 2024-09-10 09:05 | Outpatient (REF) | payer BC, SELFPAY | LOC: RAD 09:05 | PROVIDERS: ATTENDING PHYSICIAN Thoracic Surgery (Cardiothoracic Vascular Surgery); FAMILY PHYSICIAN Student in an Organized Health Care Education/Training Program | DX: Z01.810 Encounter for preprocedural cardiovascular examination (principal) | CPT/HCPCS: 71275; Q9967 ==

== ENCOUNTER 2024-09-16 07:13 | Inpatient (IN) | payer BC, SELFPAY ==
[2024-09-04 08:15] VITALS: BMI 23.5
[2024-09-04 09:04] LABS: % Basophils 0.8 % (0-2); % Eosinophils 5.6 % (0-6); % Immature Granulocytes 0.2 % (0-0.5); % Lymphocytes 32.9 % (20.5-51.1); % Monocytes 7.4 % (1.7-9.3); % Neutrophils 53.1 % (42.2-75.2); Absolute Eosinophils 0.3 10^3/uL (0-0.7); Absolute Lymphocytes 1.7 10^3/uL (1.2-3.4); Absolute Monocytes 0.4 10^3/uL (0.1-0.6); Absolute Neutrophils 2.7 10^3/uL (1.4-6.5); Hematocrit 42.3 % (39.0-52.0); Hemoglobin 14.7 g/dL (13.0-18.0); Mean Corp Hgb Conc. 34.8 g/dL (33.0-37.0); Mean Corpuscular Hgb 31.8 pg (27.0-31.0); Mean Corpuscular Volume 91.6 fL (80.0-94.0); Mean Platelet Volume 12.5 fL (7.4-10.4); Nucleated Red Blood Cells % 0 % (-); Platelet Count 211 10^3/uL (130-400); Red Blood Cell Count 4.62 10^6/uL (4.70-6.10); Red Cell Dist. Width 11.9 % (11.5-14.5)
[2024-09-04 09:24] LABS: INR 0.93; PT 12.8 Sec (11.4-14.6)
[2024-09-04 09:25] LABS: APTT 33.2 Sec (23.4-35.0)
[2024-09-04 09:26] LABS: ALT (SGPT) 23 U/L (0-50); AST (SGOT) 24 U/L (17-59); Albumin 4.8 g/dl (3.5-5.0); Alkaline Phosphatase 71 U/L (38-126); Blood Urea Nitrogen 13 mg/dl (9-20); Calcium 9.9 mg/dl (8.4-10.2); Carbon Dioxide 30 mmol/L (22-30); Chloride 102 mmol/L (98-107); Direct Bilirubin 0.2 mg/dl (0.0-0.4); Estimated Creatinine Clearance 81 ml/min; Glucose 104 mg/dl (70-99); Potassium 5.2 mmol/L (3.5-5.1); Sodium 142 mmol/L (135-145); Total Protein 7.3 g/dl (6.3-8.2); eGFR > 60.00
[2024-09-04 09:30] LABS: Urine Albumin Negative (Neg - Trace); Urine Bilirubin Negative (Negative); Urine Character Clear (Clear); Urine Color Yellow; Urine Glucose Negative (Negative); Urine Ketone Negative (Negative); Urine Leukocyte Negative (Negative); Urine Nitrite Negative (Negative); Urine Occult Blood 1+ (Negative); Urine Specific Gravity 1.015 (<1.030); Urine Urobilinogen Negative (Neg - 1+)
[2024-09-04 09:47] LABS: Glycohemoglobin (HgbA1c) 5.4 % (4.0-5.6)
[2024-09-04 10:25] LABS: Urine Amorphous Seen; Urine Mucus Few
[2024-09-04 10:26] LABS: Urine Red Blood Cell 0-2 /HPF (0-2)
[2024-09-04 10:27] LABS: Urine White Cell 0-2 /HPF (0-5)
--- NOTE | 2024-09-04 10:32 | CM ---
CM met w/ patient during PATs for planned CT Surg, 09/16.
Pt. known to me from prior hospitalization.
Pt. resides w/ spouse in a private, 2 st home w/ 4 SHAAN. Functionally, patient is indep. w/ ADLs, mobility without the use of any assisted device.
Pt. is retired. + drives.
Pt. has RX plan and uses [facility] on [address] for prescription needs.
Reviewed pre and post op routines.
Soap, shower instructions and CT Surgery booklet provided/reviewed.
Reviewed post op restrictions to include lifting, driving.
Plan is for CT Surgery, 09/16
Anticipated DC plan is for home w/ CT Transitional Care RN.
CM to follow.
[2024-09-16] VITALS (7 sets, daily range): BP systolic 104–124; BP diastolic 61–76; BMI 22.3
--- NOTE | 2024-09-16 07:31 | W.CVOR.SURPR ---
CVOR Surgeon Immed Pre Op
-
I have examined this patient prior to performance of the scheduled procedure.
The patient's condition is unchanged from the time of the dictated/written History and
Physical and the patient is able to undergo the scheduled procedure.
RA MIDCAB
--- NOTE | 2024-09-16 08:26 | CM ---
Reviewed chart. Mr. Solomon is in the operating room today. Prior to admission he resides with his significant other in a two story home with four steps to enter. Prior to admission he was independent with ambulation and adls. He does not have
any DME in the home. He has a prescription dasilva and uses [facility]. Medical work-up in progress. The discharge plan is to return home with significant other and a home visit by the Transitional Care Nurse when medically stable.
--- NOTE | 2024-09-16 08:43 | PTCARENOTE ---
Pt arrived to CVICU at 0715 into room 2267. Pt confirms NPO since midnight, confirms showering x2 with surgical wash prior to admission. Pt clipped and prepped. ABO sent to lab. Admission questions completed. Pt oriented to unit. Spouse, Rudolph, at
bedside. Spouse plans to wait in hospital during surgery. Awaiting CVOR at this time.
[2024-09-16] MEDS: PROTONIX 40 MG PO (10:33)
[2024-09-16] MEDS: MAGNESIUM OXIDE 500 MG PO (10:33)
[2024-09-16] MEDS: LOPRESSOR 50 MG PO (10:33)
[2024-09-16] MEDS: BACTROBAN 2% OINTMENT 1 APPLIC NASAL ×2 (10:33→19:42)
[2024-09-16 12:39] LABS: ACT+ - POC 101 Seconds (82-134)
[2024-09-16 12:58] LABS: Urine Albumin Negative (Neg - Trace); Urine Bilirubin Negative (Negative); Urine Character Clear (Clear); Urine Color Yellow; Urine Glucose Negative (Negative); Urine Ketone Negative (Negative); Urine Leukocyte Negative (Negative); Urine Nitrite Negative (Negative); Urine Occult Blood 1+ (Negative); Urine Specific Gravity 1.005 (<1.030); Urine Urobilinogen Negative (Neg - 1+)
[2024-09-16 13:56] LABS: Urine Squamous Cell 0-2 /LPF (Few)
[2024-09-16 13:57] LABS: Urine Bacteria Few (Negative); Urine Red Blood Cell 0-2 /HPF (0-2); Urine White Cell 0-2 /HPF (0-5)
[2024-09-16 14:34] LABS: ACT+ - POC 479 Seconds (82-134)
[2024-09-16 15:01] LABS: ACT+ - POC 446 Seconds (82-134)
[2024-09-16] MEDS: ANCEF 10 IV ×2 (15:07)
[2024-09-16 15:14] LABS: ACT+ - POC 104 Seconds (82-134)
[2024-09-16 15:21] LABS: B.E. - POC -0.3 mmol/L; Glucose - POC 154 mg/dl (70-99); HCO3 - POC 25 mmol/L (21-28); Hematocrit - POC 33 % PCV (42-52); Hemodilution- POC No; Hemoglobin Calculated - POC 11.3; Ionized Calcium - POC 1.14 mmol/L (1.15-1.33); O2 Saturation %Calculated-POC 99.7 % (94-98); PCO2 - POC 44 mmHg (35-48); PO2 - POC 200 mmHg (83-108); Potassium - POC 4.3 mmol/L (3.5-5.1); Sodium - POC 143 mmol/L (136-145); Specimen Type - POC Arterial; pH - POC 7.37 (7.35-7.45)
--- NOTE | 2024-09-16 15:37 | W.PN.CT.SURG ---
CT Surgery Operative Note
-
CARDIAC SURGERY OPERATIVE REPORT
Preoperative Diagnosis: Coronary Artery Disease with proximal LAD involvement and prior STEMI requiring PCI to the RCA
Postoperative Diagnosis: Same
Procedure(s) Performed:
1. Robotic assisted MIDCAB (single-vessel bypass MEDINA in situ to LAD)
2. Robotic assisted harvest of internal mammary artery with anterolateral mini thoracotomy for CABG
3. Transesophageal echocardiography
4. Transonic Flowprobe assessment of MEDINA graft
5. Anesthesia regional block
Date of Surgery: 09/16/2024
Comorbidities:
1. Coronary artery disease involving the proximal LAD
2. NSVT
3. STEMI with prior intervention to the RCA
4. Hypertension
5. Hyperlipidemia
Attending Surgeon: Archie Martin MD, MS
Assistants: Gloria Mercado PA-C (present and necessary to or assistant, exchanging robotic instruments, retraction, suction, exposure, suture management, and wound closure under my direction)
Anesthesiology: Benji Paulson MD and Emili Sena CRNA
Scrub and Circulating RNs: Marcus Millan RN, Ni Goodwin RN
Knife Edger: Talia Silva CCP
Anesthesia: GETA
EBL: per perfusion records
Products: None
Indication(s) for Procedures: This is a 64-year-old male who over 30 days ago presented to the hospital with a STEMI to the RCA. He underwent emergent stenting with excellent result. He had residual coronary disease. Given his young age and
approximately disease he was referred for hybrid coronary revascularization as he did not want sternotomy. The STS risk was discussed with the patient in the office and the shared decision making was to pursue a single-vessel bypass using his
mammary artery to his LAD via a mini invasive approach.
Conduit(s) Quality/Internal Diameter:
MEDINA -skeletonized, flow probe analysis, mean flow of 28 cc/min, PI of 2.5-2.8
Target(s) Quality/Internal Diameter:
LAD -good, accommodated 2.0 mm shunt
Findings: His left ventricular ejection fraction preoperatively was 55 to 60%. Following surgery his EF remained the same. There were no new regional wall motion abnormalities at the inclusion of the case. The MEDINA was harvested in a skeletonized
fashion. The mammary graft was verified with Doppler probe to have excellent signals. Anesthesia did perform regional blocks to aid with pain control. No blood products were given. No inotropes required.
Description of Procedure: The patient was taken to the operating room. Their identity and procedure to be performed were verified and they were positioned supine on the operating table. Induction via general anesthesia with endotracheal intubation
was performed and central venous access and arterial monitoring were inserted. A preoperative transesophageal echocardiogram was performed to assess cardiac function and valvular function. The patient was then prepped and draped from chin to feet in
a sterile fashion and positioned with left side bumped up and left arm down. A preoperative time-out was performed with all members of the team present. A Veress needle was used to enter the chest after stopping ventilation with the left lung
verified by anesthesia. We started with slow pressure insufflation which they tolerated. An 8 mm port was inserted in the fourth intercostal space laterally and a camera was inserted verifying no intrathoracic iatrogenic injuries. 2 additional
ports(8 mm and 8mm) were placed along the midaxillary line on either side of the camera port. Single 12 mm air seal port was used for the clinical physician assistant to pass instruments and sutures. The robotic platform was then docked and targeted towards the
mammary. The mammary was harvested in a skeletonized fashion. A posterior pericardiotomy was created to facilitate drainage. Once sufficient length was obtained, an anterior pericardiotomy was created to identify the distal target. This was marked
with a marker robotically. Full heparinization was given (a total of 27,000 units). 3 Hem-o-juli clips were used to occlude and divide the mammary distally at its bifurcation, and a single silk suture was used to secure the mammary to the
pericardium overlying the LAD target with another hem-o-juli clip. The robot platform was then undocked and the patient and a left anterior thoracotomy was created over the target vessel. Upon entering the thoracic cavity the mammary and LAD were
visible. A thoracotomy retractor was placed to facilitate exposure and a pericardial well was created. The ACT was confirmed to be over 400.
The cardiac suction stabilizer was used to isolate the LAD target. The distal end of the mammary was prepped and a small arteriotomy was created on the underbelly of the MEDINA. We verified orientation and length of the NAHUN and found brisk flow. A
coronary arteriotomy was created and enlarged with coronary stokes scissors. A 2mm shunt was inserted to facilitate exposure and continued chicken ranch coronary perfusion. An end-to-side anastomosis was created with a 7-0 prolene. The bulldog on the
mammary was removed which demonstrated excellent graft flow. The shunt was then remove and demonstrated excellent chicken ranch flow. Appropriate hemostasis was confirmed. The mammary graft was inspected and was free from kinking or twisting and flowprobe
evaluation demonstrated good flow and PI. A test dose of protamine was administered and the patient was monitored for any adverse reaction before resuming protamine. A 24F yanique drain into the pericardium and through the posterior pericardiotomy
into the left chest. Fascia was approximated with #1 vicryl suture. Local analgesia was administered to the surgical sites. The subcutaneous, dermis and epidermis were closed in layers in a running fashion. The skin wound was cleansed and dressed.
All instrument, sponge, and needle counts were confirmed to be correct x 2 at the end of the operation. The patient was transferred to the cardiac intensive care unit extubated in critical but stable condition.
I, Dr. Archie Martin, was present, scrubbed for, and performed all critical elements of this procedure.
Archie Martin MD, MS
Cardiothoracic Surgeon
[facility]
This operative dictation was created using the [employer] dictation system. Please excuse any grammatical, typographical, or 'sound alike' errors
--- NOTE | 2024-09-16 16:00 | CON.INTV ---
Consultation
Consultation Request
Date/Time Consultation Requested: 09/16/24
Date/Time Consultation Performed: 09/16/24
Performing Provider: Genet
Reason for Consultation: CVICU
Medical History
-
History of Present Illness:
Patient is a 64-year-old male with previous history of multivessel CAD presenting for elective cardiac intervention. He had initially been admitted at on 08/04/2024 with NSTEMI. He underwent cardiac catheterization demonstrating multivessel CAD
and had PCI to that region with multiple stents. He was referred as an outpatient for consideration of hybrid revascularization in the form of robotic assisted MEDINA to LAD followed by additional stenting to the OM branches. Underwent procedure
today 09/16/24 and extubated in the OR, tolerated procedure well. He is transferred to CVICU on pressors/insulin drip for further postoperative management.
Past Medical History
Past Medical History: Other (see list below)
Allergies / Home Medications
Allergies
Allergy/AdvReac Type Severity Reaction Status Date / Time
No Known Allergies Allergy Verified 09/01/24 13:51
Home Medications
�Medication �Instructions �Recorded �Confirmed �Last Taken �Type
aluminum-mag hydroxide-simethicone 5 ml PO DAILYPRN PRN heartburn 08/04/24 09/16/24 08/04/24 History
200 mg-200 mg-20 mg/5 mL oral susp
cyanocobalamin (vitamin B-12) 1,000 mcg PO DAILY Supplement 08/04/24 09/16/24 09/08/24 08:00 History
1,000 mcg tablet
zolpidem 10 mg tablet (Ambien) 5 mg PO HS Sleep 08/04/24 09/16/24 09/15/24 20:00 History
nitroglycerin 0.4 mg sublingual 0.4 mg sublingual [id number] PRN 08/06/24 09/01/24 Unknown Rx
tablet Chest pain #25 tabs
aspirin 81 mg chewable tablet 81 mg PO DAILY Blood Clot 09/16/24 09/16/24 09/15/24 08:00 History
Prevention/Tx
atorvastatin 80 mg tablet 80 mg PO QPM High Cholesterol 09/16/24 09/16/24 09/15/24 20:00 History
metoprolol tartrate 50 mg tablet 50 mg PO BID Blood Pressure 09/16/24 09/16/24 09/15/24 20:00 History
ticagrelor 90 mg tablet (Brilinta) 90 mg PO BID Blood Clot 09/16/24 09/16/24 09/08/24 20:00 History
Prevention/Tx
valsartan 160 mg tablet 160 mg PO DAILY Blood Pressure 09/16/24 09/16/24 09/13/24 20:00 History
Review of Systems
Vitals / Labs / Diagnostic Testing
Vital Signs
Temp Pulse Resp Pulse Ox
98.2 F 65 18 98
09/16/24 07:43 09/16/24 07:43 09/16/24 07:43 09/16/24 07:43
Diagnostic Testing:
Assessment
-
Patient is a 64-year-old male with previous history of multivessel CAD presenting for elective cardiac intervention. He had initially been admitted at on 08/04/2024 with NSTEMI. He underwent cardiac catheterization demonstrating multivessel CAD
and had PCI to that region with multiple stents. He was referred as an outpatient for consideration of hybrid revascularization in the form of robotic assisted MEDINA to LAD followed by additional stenting to the OM branches. Underwent procedure
today 09/16/24 and extubated in the OR, tolerated procedure well. He is transferred to CVICU on pressors/insulin drip for further postoperative management.
MVCAD s/p LHC w/ stents and robotic MIDCAB MEDINA-LAD, stent to OM 09/16/24
NSTEMI 08/04/24
Mild postop anemia
SOB
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
HTN
HLD
Fam hx of CAD
Back pain, lumbar
Former smoker
Insomnia
Emphysema on CT
Plan
S/p robotic CAB POD #0
Titrate off pressors per protocol
ECHO reviewed with normal function
PA catheter readings reviewed
Pain control
RASS goal of 0 to -1
Intubated for procedure, extubated and doing well
ABG(s) reviewed/slight hypercarbia noted, can trial PAP if needed
CXR pending, CT prior reviewed with mild emphysema
Extubated per protocol
Maintain supplement oxygen as needed, no chronic use at home
Prior history of pulmonary disease: emphysema noted on CT, former smoker
No prior PFTs for review, suspect COPD, can eval
Can add nebulizers if needed
Aspiration precautions
Encouraged incentive spirometry, OOB/ambulation/early mobility
Advance diet as tolerated following extubation
GI prophylaxis if indicated for mechanical ventilation >48 hours
Monitor critical I/O's
Mills/chest tube output
Hb/platelets postoperatively stable
Trend CBC for now
Can transfuse if indicated for Hb <7, plt <50 in surgical patients
DVT prophylaxis including SCDs
Insulin protocol initiated and ongoing
Transition to SQ/off as indicated per team
We will follow
Diagnostic Data
CT Scan: Angio 09/10/24 -No evidence for thoracic aortic aneurysm. Minimal calcification of the descending thoracic aorta, with mild mostly noncalcified atherosclerotic disease of the descending thoracic aorta.
Noncalcified atherosclerotic disease of the proximal left subclavian artery, but appears to result in less than 50% diameter reduction, likely not hemodynamically significant.
Mild changes of emphysema in the upper lungs. The lungs appear otherwise clear.
Echo: YVONNE 09/16/24- Normal biventricular function with no wall motion abnormalities. LVEF is 55- 60% by visual inspection. Grossly normal cardiac valves. Normal size aorta.
TTE 08/05/24- Normal biventricular size and systolic function without regional wall motion abnormality. LVEF 55-60%. Mild hypokinesis of the basal to mid inferior and inferolateral aguilar. No significant valvular disease. No prior study available for
comparison.
PFT's:
Reports and relevant images were personally reviewed.
Critical Care time 50 mins -- The patient is admitted for acute critical illness for the treatment of vital organ failure and/or prevention of further life-threatening conditions. Total care includes time spent in review of history, physical exam,
medications, hemodynamic/ventilator parameters, laboratory data, imaging and discussion with house staff, pharmacy, respiratory therapy, lead python developer, and nursing.
[2024-09-16 16:06] LABS: B.E. -1.7 mmol/L; HCO3 26.5 mmol/L (21-28); Ionized Calcium 1.17 mMOL/L (1.15-1.33); O2 Saturation % 98.8 % (94-98); PCO2 59 mmHg (35-48); PO2 113 mmHg (83-108); Potassium 3.8 mMOL/L (3.5-5.1); Sodium 137 mMOL/L (136-145); pH 7.26 (7.35-7.45)
[2024-09-16] MEDS: DILAUDID 0.5 MG IV ×2 (16:07→23:28)
[2024-09-16] MEDS: NSS 500 IV (16:08)
[2024-09-16 16:09] LABS: Hemoglobin 12.7 g/dL (13.0-18.0); Mixed Venous O2 Saturation 88.7 %; Platelet Count 148 10^3/uL (130-400)
[2024-09-16 16:10] LABS: Glucose - Point of Care 115 mg/dl (70-99)
[2024-09-16 16:18] LABS: INR 1.38; PT 17.5 Sec (11.4-14.6)
[2024-09-16 16:29] LABS: Blood Urea Nitrogen 9 mg/dl (9-20); Estimated Creatinine Clearance 110 ml/min; Glucose 116 mg/dl (70-99); Magnesium 1.9 mg/dl (1.6-2.3)
[2024-09-16] MEDS: DEMEROL 12.5 MG IV (16:31)
[2024-09-16] MEDS: CALCIUM GLUCONATE 100 IV (16:32)
[2024-09-16] MEDS: KCL 50 IV ×2 (16:32→17:36)
--- NOTE | 2024-09-16 16:47 | PTCARENOTE ---
Pt arrived from CVOR to CVICU at 1600. Pt is drowsy, able to open eye to voice, follows commands. Pt remains SR with HR 73. BP 115/73 MAP 93. Initially on Levo at 3mcg/min, Levo now titrated off. CVP 13. No epicardial wires in place. Pt arrived
extubated, remains on 8L nonrebreather, pulse oximetry 100%. Left pleural chest tube in place, no sign of air leak or crepitus, drainage red in color. Bowel sounds hypoactive. Remains on insulin gtt per glycemic protocol. Mills catheter in place
draining yellow urine. Mills care completed. Left lateral incisions approximated with surgical adhesive, SHOOTER'S HELPER. Right IJ cordis and SLIC in place. Pt's current temp 95.9, Nico Hugger in place. Demerol administered for shivering and Dilaudid
administered for pain. Post-op EKG and X-ray obtained. Post-op Labs collected and reviewed, K and iCal being replaced.
[2024-09-16 17:03] LABS: Glucose - Point of Care 85 mg/dl (70-99)
[2024-09-16] MEDS: TYLENOL PO ×2 (17:34→21:22)
[2024-09-16] MEDS: PACERONE PO (17:34)
[2024-09-16] MEDS: NEURONTIN PO ×2 (17:34→21:22)
[2024-09-16] MEDS: CARDENE 200 IV (17:35)
[2024-09-16] MEDS: LIPITOR PO (17:35)
[2024-09-16 18:09] LABS: Glucose - Point of Care 91 mg/dl (70-99)
[2024-09-16 19:06] LABS: Glucose - Point of Care 103 mg/dl (70-99)
[2024-09-16] MEDS: LOW STRENGTH ASPIRIN 81 MG PO (19:08)
--- NOTE | 2024-09-16 19:39 | PTCARENOTE ---
Received pt from [facility]. pt is s/p from MidCABGx1 with dr Martin. pt is resting in bed, AAOx4, states pain is 4/10, see MAR for pain management. heart sounds audible, rub present, radial and DP pulses palpable. lungs diminished throughout, spo2 97%
on 4 LNC, x1 left lateral pleural CT to -20 wall suction, no air leaks, no tidaling, no crepitus. hypoactive BS x4 quadrants, abdomen soft non tender. pt voiding clear yellow urine via quintero catheter. surgical sites maintained. right IJ cordis, left
radial Arlee, and PIV all maintained, leveled, and zeroed. Cardene and insulin gtt infusing. call king within reach. will continue to monitor.
[2024-09-16] MEDS: OFIRMEV 100 IV (19:41)
[2024-09-16] MEDS: SENOKOT-S PO (19:42)
[2024-09-16 19:53] LABS: Glucose - Point of Care 110 mg/dl (70-99)
[2024-09-16] MEDS: MAGNESIUM SULFATE 50 IV (20:01)
[2024-09-16 20:55] LABS: Glucose - Point of Care 87 mg/dl (70-99)
[2024-09-16] MEDS: ROXICODONE 5 MG PO (20:57)
[2024-09-16] MEDS: PACERONE 200 MG PO (21:22)
[2024-09-16 22:11] LABS: Hematocrit 39.4 % (39.0-52.0); Hemoglobin 13.9 g/dL (13.0-18.0); Platelet Count 173 10^3/uL (130-400)
--- NOTE | 2024-09-16 23:00 | PTCARENOTE ---
Pain management with Ofirmev, oxycodone, and repositioning, see AUG. mag IVBP given per order. call king within reach. will continue to monitor.
[2024-09-16 23:01] LABS: Glucose - Point of Care 112 mg/dl (70-99)
[2024-09-16] MEDS: ANCEF 5 IV (23:28)
[2024-09-17] VITALS (28 sets, daily range): BP systolic 84–127; BP diastolic 48–81; PULSE 81; O2SAT 94; BMI 22.7
--- NOTE | 2024-09-17 | PTCARENOTE ---
pt assessment unchanged. NSR on monitor, VSS. on going pain management. will continue to monitor.
[2024-09-17 00:57] LABS: Glucose - Point of Care 85 mg/dl (70-99)
[2024-09-17] MEDS: ROXICODONE 5 MG PO (02:04)
[2024-09-17] MEDS: DILAUDID 0.5 MG IV (03:06)
[2024-09-17 03:16] LABS: Glucose - Point of Care 96 mg/dl (70-99)
[2024-09-17 03:36] LABS: Hemoglobin 13.4 g/dL (13.0-18.0); Mean Corp Hgb Conc. 35.3 g/dL (33.0-37.0); Mean Corpuscular Hgb 32.3 pg (27.0-31.0); Mean Corpuscular Volume 91.6 fL (80.0-94.0); Mean Platelet Volume 12.6 fL (7.4-10.4); Platelet Count 173 10^3/uL (130-400); Red Blood Cell Count 4.15 10^6/uL (4.70-6.10); Red Cell Dist. Width 12.4 % (11.5-14.5); White Blood Cell Count 12.1 10^3/uL (4.8-10.8)
[2024-09-17 03:54] LABS: Blood Urea Nitrogen 13 mg/dl (9-20); Carbon Dioxide 21 mmol/L (22-30); Chloride 105 mmol/L (98-107); Estimated Creatinine Clearance 95 ml/min; Glucose 104 mg/dl (70-99); Magnesium 2.2 mg/dl (1.6-2.3); Potassium 4.8 mmol/L (3.5-5.1); Sodium 138 mmol/L (135-145); eGFR > 60.00
[2024-09-17] MEDS: LR 250 ML IV (03:57)
[2024-09-17 04:52] LABS: Glucose - Point of Care 109 mg/dl (70-99)
--- NOTE | 2024-09-17 05:49 | W.PN.CT ---
Today's Communication / Plan
-
Plan:
-NAEON
-hemodynamically stable, levo gtt off -> txf to tele phase
-UOP: 1335ml 12hrs, 2110ml 24hrs
-CT output: L Pl 110ml 12hrs, 190ml 24hrs
-tolerating RA
-reinitiate Brilinta today for stents
-required Ofirmez x1 postop for pain
-chest PT, encourage IS, OOB
-PT/OT
-dispo planning
Assessment / Plan
-
s/p robotic assisted minimally invasive CABG (MEDINA to LAD) on 09/16/[address] Martin - POD #1
-inferior STEMI with MVCAD s/p stent x3 08/05/24 with residual CAD
-HTN
-HLD
Discussed patient care with: Care Team
Subjective
Procedure
s/p robotic assisted minimally invasive CABG (MEDINA to LAD) on 09/16/[address] Martin
-
Date of Service: September 17, 2024
Objective Data
-
Lab Results
09/16/24 19:48
09/16/24 15:56
PT 17.5 Sec (11.4-14.6) H 09/16/24 15:56
INR 1.38 09/16/24 15:56
APTT 35.0 Sec (23.4-35.0) 09/16/24 15:56
Vital Signs
Vital Signs
Temp Pulse Resp BP Pulse Ox
99.5 F 88 13 111/72 97
09/16/24 22:00 09/16/24 22:00 09/16/24 22:00 09/16/24 22:00 09/16/24 22:00
CT Intake/Output/Weight
09/16/24 09/16/24 09/17/24
06:59 18:59 06:59
Intake Total 237.1 / 334.0 96.9 / 334.0
Output Total 855 / 1695 840 / 1695
Balance -617.9 / -1361.0 -743.1 / -1361.0
SaO2: 97
Physical Exam
-
General: Awake, Oriented and AOx3
Cardiovascular: Regular rate & rhythm
Respiratory: Clear and Equal
Sternum: Stable
Incision: Clean, Dry and Intact
Extremities: No Edema
Data Reviewed
-
Lab Results: Results Reviewed
Medications: Active Meds Reviewed
Chest X-Ray: Image Reviewed
Vital Signs / Labs
-
Vital Signs and Labs:
Temp Pulse Resp BP Pulse Ox
99.1 F 80 10 106/54 91
09/17/24 04:52 09/17/24 04:00 09/17/24 04:52 09/17/24 03:00 09/17/24 04:52
09/17/24 03:07
09/17/24 03:09
09/15/24 09/16/24 09/16/24
07:19 12:05 14:27
WBC
RBC
Hgb
Hct
MCH
MPV
PT
pH
pCO2
pO2
ABG O2 Sat (Measured)
POC ABG O2 Sat (Calc)
Carbon Dioxide
Creatinine
Glucose
Ur Occult Blood Reflex 1+ A
Urine Bacteria (Reflex) Few A
POC pO2
POC Glucose
POC Ionized Calcium
POC Lactate
POC ACT+ 479 H
POC Hematocrit
Crossmatch IS Only See Detail
09/16/24 09/16/24 09/16/24
14:29 14:55 15:56
WBC
RBC
Hgb 12.7 L
Hct 37.0 L
MCH
MPV
PT 17.5 H
pH 7.26 L
pCO2 59 H
pO2 113 H
ABG O2 Sat (Measured) 98.8 H
POC ABG O2 Sat (Calc) 99.7 H
Carbon Dioxide
Creatinine 0.6 L
Glucose 116 H
Ur Occult Blood Reflex
Urine Bacteria (Reflex)
POC pO2 200 H
POC Glucose 154 H
POC Ionized Calcium 1.14 L
POC Lactate 1.20 H
POC ACT+ 446 H
POC Hematocrit 33 L
Crossmatch IS Only
09/16/24 09/16/24 09/16/24
15:59 19:03 19:50
WBC
RBC
Hgb
Hct
MCH
MPV
PT
pH
pCO2
pO2
ABG O2 Sat (Measured)
POC ABG O2 Sat (Calc)
Carbon Dioxide
Creatinine
Glucose
Ur Occult Blood Reflex
Urine Bacteria (Reflex)
POC pO2
POC Glucose 115 H 103 H 110 H
POC Ionized Calcium
POC Lactate
POC ACT+
POC Hematocrit
Crossmatch IS Only
09/16/24 09/17/24 09/17/24
22:59 03:07 03:09
WBC 12.1 H
RBC 4.15 L
Hgb
Hct 38.0 L
MCH 32.3 H
MPV 12.6 H
PT
pH
pCO2
pO2
ABG O2 Sat (Measured)
POC ABG O2 Sat (Calc)
Carbon Dioxide 21 L
Creatinine
Glucose 104 H
Ur Occult Blood Reflex
Urine Bacteria (Reflex)
POC pO2
POC Glucose 112 H
POC Ionized Calcium
POC Lactate
POC ACT+
POC Hematocrit
Crossmatch IS Only
09/17/24
04:50
WBC
RBC
Hgb
Hct
MCH
MPV
PT
pH
pCO2
pO2
ABG O2 Sat (Measured)
POC ABG O2 Sat (Calc)
Carbon Dioxide
Creatinine
Glucose
Ur Occult Blood Reflex
Urine Bacteria (Reflex)
POC pO2
POC Glucose 109 H
POC Ionized Calcium
POC Lactate
POC ACT+
POC Hematocrit
Crossmatch IS Only
[2024-09-17] MEDS: TYLENOL 1000 MG PO ×3 (06:06→22:10)
[2024-09-17 07:04] LABS: Glucose - Point of Care 85 mg/dl (70-99)
--- NOTE | 2024-09-17 07:19 | W.PN.INTV ---
Addendum entered and electronically signed by Nati De León DO 09/18/24 07:33:
Transferred to tele, we will sign off at this time, pls call with questions
Original Note:
Today's Communication / Plan
Recommendations
Doing well post extubation, OOB to chair
Chest tube remains
Titrating off gtts
Encouraged IS, OOB, PT
Can likely transfer to tele once off gtts
Assessment
-
Patient is a 64-year-old male with previous history of multivessel CAD presenting for elective cardiac intervention. He had initially been admitted at on 08/04/2024 with NSTEMI. He underwent cardiac catheterization demonstrating multivessel CAD
and had PCI to that region with multiple stents. He was referred as an outpatient for consideration of hybrid revascularization in the form of robotic assisted MEDINA to LAD followed by additional stenting to the OM branches. Underwent procedure
today 09/16/24 and extubated in the OR, tolerated procedure well. He is transferred to CVICU on pressors/insulin drip for further postoperative management.
MVCAD s/p LHC w/ stents and robotic MIDCAB MEDINA-LAD, stent to OM 09/16/24
NSTEMI 08/04/24
Mild postop anemia
SOB
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
HTN
HLD
Fam hx of CAD
Back pain, lumbar
Former smoker
Insomnia
Emphysema on CT
Plan
S/p robotic CAB POD #1
Titrate off pressors per protocol
ECHO reviewed with normal function
PA catheter readings reviewed
Pain control
RASS goal of 0 to -1
Intubated for procedure, extubated and doing well
ABG(s) reviewed/slight hypercarbia noted, can trial PAP if needed
CXR pending, CT prior reviewed with mild emphysema
Extubated per protocol
Maintain supplement oxygen as needed, no chronic use at home
Prior history of pulmonary disease: emphysema noted on CT, former smoker
No prior PFTs for review, suspect COPD, can eval
Can add nebulizers if needed
Aspiration precautions
Encouraged incentive spirometry, OOB/ambulation/early mobility
Advance diet as tolerated following extubation
GI prophylaxis if indicated for mechanical ventilation >48 hours
Monitor critical I/O's
Mills/chest tube output
Hb/platelets postoperatively stable
Trend CBC for now
Can transfuse if indicated for Hb <7, plt <50 in surgical patients
DVT prophylaxis including SCDs
Insulin protocol initiated and ongoing
Transition to SQ/off as indicated per team
Diagnostic Data
CT Scan: Angio 09/10/24 -No evidence for thoracic aortic aneurysm. Minimal calcification of the descending thoracic aorta, with mild mostly noncalcified atherosclerotic disease of the descending thoracic aorta.
Noncalcified atherosclerotic disease of the proximal left subclavian artery, but appears to result in less than 50% diameter reduction, likely not hemodynamically significant.
Mild changes of emphysema in the upper lungs. The lungs appear otherwise clear.
Echo: YVONNE 09/16/24- Normal biventricular function with no wall motion abnormalities. LVEF is 55- 60% by visual inspection. Grossly normal cardiac valves. Normal size aorta.
TTE 08/05/24- Normal biventricular size and systolic function without regional wall motion abnormality. LVEF 55-60%. Mild hypokinesis of the basal to mid inferior and inferolateral aguilar. No significant valvular disease. No prior study available for
comparison.
PFT's:
Reports and relevant images were personally reviewed.
Critical Care time 34 mins -- The patient is admitted for acute critical illness for the treatment of vital organ failure and/or prevention of further life-threatening conditions. Total care includes time spent in review of history, physical exam,
medications, hemodynamic/ventilator parameters, laboratory data, imaging and discussion with house staff, pharmacy, respiratory therapy, drafter automotive design, and nursing.
Subjective Dataa
Subjective Data
Date of Service:
Date of Service: September 17, 2024
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
Subjective:
Doing well this AM, sitting in chair
Extubated 09/16 and tolerated
Pain noted
Objective Data
Data Reviewed
Vital Signs / I&O / Oxygen:
Vital Signs
Temp Pulse Resp BP Pulse Ox
99.1 F 77 16 102/67 96
09/17/24 04:52 09/17/24 07:00 09/17/24 07:00 09/17/24 07:00 09/17/24 07:00
Intake and Output
09/16/24 09/17/24 09/18/24
06:59 06:59 06:59
Intake Total 485.0 / 495.4 10.4 / 10.4
Output Total 2370 / 2395
Balance -1885.0 / -1899.6 -14.6 / -14.6
SaO2 96
Nasal Cannula flow liters per 2
minute
Physical Exam
General: Comfortable and Other (NAD)
HEENT: Normocephalic, Anicteric and Moist Mucous Membranes
Cardiovascular: S1-S2 and Regular Rhythm
Respiratory: Clear, Non-Labored Respirations and Chest Tube
GI: Soft, Non Distended and Non Tender
Neurology: Awake, Alert, Oriented and No Motor Deficits
Skin: Warm, Dry and Good Color
Labs/Micro/Reports
Lab Data
09/17/24 03:07
09/17/24 03:09
Laboratory Results
09/16/24
15:56
PT 17.5 H
INR 1.38
APTT 35.0
pH 7.26 L
pCO2 59 H
pO2 113 H
HCO3 26.5
O2 Delivery Level
--- NOTE | 2024-09-17 07:53 | W.PN.CD ---
Today's Communication / Plan
-
Routine post operative management.
Incentive spirometry.
Ambulate.
Not ready for home anti-hypertensives.
Plan for staged PCI of the OM (not during this hospitalization).
Favor colchicine 0.6 mg BID for treatment of pericarditis.
Impression / Plan
-
Impression/Plan: 64 y/o male with HTN, HLD and CAD s/p PCI of the mRCA and dRCA/RPDA (DK Crush) for inferior STEMI (08/04/2024) admitted for elective MIDCAB of residual LAD stenosis.
#CAD
-Chronic, progressive.
-Prior DK Crush PCI to the dRCA/RPDA (Medtronic Midway [place] 2.0 x 22 to RPDA, Xience Skypoint 2.5 x 38 to dRCA/RPL, KBI with 2.25 and 2.5 NCB).
-S/P MIDCAB with Dr. Martin, 09/16/2024.
-Routine post operative management.
-Encourage incentive spirometry.
-Ambulate when appropriate.
-Pain/chest tube management per CT surgery.
-Resume DAPT, minimum of 12 months, followed by aspirin indefinitely.
-High dose, high potency statin.
-Plan for staged PCI of OM (not during this hospitalization).
#Pericarditis
-Acute, post operative.
-Acknowledges chest pain, worse when recumbent.
-Pain control per CT surgery. I would favor colchicine 0.6 mg BID rather than NSAID due to CAD.
#HTN
-Chronic, stable.
-Currently normotensive to mildly hypotensive.
-Hold home medications at this time, restart as needed.
#HLD
-Chronic, stable.
-Total cholesterol = 223, LDL = 124, HDL = 39, Triglycerides = 302 (08/05/2024).
-Resume atorvastatin 80 mg daily.
-Goal LDL < 55, triglycerides < 150.
-Repeat blood work in October/November of this year.
Subjective/Interval History:
Weight up 1 kg from yesterday.
Mild hypotension this morning.
SaO2 96% on 2LNC.
Some SHAAN on EKG with positional chest pain consistent with post operative pericarditis.
DATA:
Surgery, 09/16/2024:
Procedure(s) Performed:
1. Robotic assisted MIDCAB (single-vessel bypass MEDINA in situ to LAD).
2. Robotic assisted harvest of internal mammary artery with anterolateral mini thoracotomy for CABG.
3. Transesophageal echocardiography.
4. Transonic Flowprobe assessment of MEDINA graft.
5. Anesthesia regional block.
Cardiac Catheterization/PCI, 08/04/2024:
CONCLUSIONS
1. Severe triple-vessel coronary artery disease as described with culprit 100% occlusion of the ostial RPDA.
2. Successful IVUS-guided PCI to the RPDA/RPAV bifurcation with DK crush (2.0x22 mm Shen [place] FIDENCIO to RPDA and 2.5x38 mm [place]ont Xience FIDENCIO to distal RCA into RPAV, KBI with 2.25 and 2.5 mm balloons) overlapped proximally with a 3.5x38 mm Shen
[place] drug-eluting stent from the proximal to mid RCA post-dilated throughout with a 3.5 mm NC balloon.
3. Mildly elevated LV filling pressure and no aortic stenosis.
Intraoperative YVONNE, 09/16/2024:
CONCLUSIONS
Normal biventricular function with no wall motion abnormalities. LVEF is 55-
60% by visual inspection.
Grossly normal cardiac valves.
Normal size aorta.
POST OPERATIVE FINDINGS
S/P MIDCAB
Grossly unchanged exam.
Physical Exam
Vital Signs/Labs
Vital Signs
Temp Pulse Resp BP Pulse Ox
37.3 C 77 16 102/67 96
09/17/24 04:52 09/17/24 07:00 09/17/24 07:00 09/17/24 07:00 09/17/24 07:00
09/15/24 09/16/24 09/17/24
11:59 11:59 11:59
Actual Weight 62.7 kg 63.7 kg
09/17/24 03:07
09/17/24 03:09
PT 17.5 Sec (11.4-14.6) H 09/16/24 15:56
INR 1.38 09/16/24 15:56
APTT 35.0 Sec (23.4-35.0) 09/16/24 15:56
Magnesium 2.2 mg/dl (1.6-2.3) 09/17/24 03:09
Physical Exam
Constitutional: No acute distress and Comfortable
EENT: Anicteric and Moist mucous membranes
Cardiovascular: Rhythm & rate is regular, Pedal edema is absent, JVD pressure is normal, S1S2 is normal and Rub present
Respiratory: Respiratory effort normal, Lungs clear to auscul., Wheeze Absent, Crackles Absent and Rhonchi Absent
GI: Soft, Distention absent, Flat, Non tender and Normal bowel sounds
Neuro/Psych: AO x 3
Data Reviewed
-
Date of Service: September 17, 2024
Medical Decision Making: Reviewed Test Results, Independent Historian Assessment and Test Interpretation
EKG: Tracing Personally Visualized and interpreted and Report Reviewed by me
Echo: Report Reviewed by me
X-Ray/CT/US/MRI/NUC/PET: Image Personally Visualized and interpreted and Report Reviewed by me
Medical Tests (PFT, Pathology etc): Report Reviewed by me
Labs: Labs Reviewed by me
Old Records: Reviewed
[2024-09-17 07:56] LABS: B.E. - POC 1.9 mmol/L; Glucose - POC 91 mg/dl (70-99); HCO3 - POC 25 mmol/L (21-28); Hematocrit - POC 34 % PCV (42-52); Hemodilution- POC No; Hemoglobin Calculated - POC 11.7; Ionized Calcium - POC 1.09 mmol/L (1.15-1.33); Lactate - POC < 0.30 mmol/L (0.36-0.75); PCO2 - POC 34 mmHg (35-48); PO2 - POC 492 mmHg (83-108); Potassium - POC 3.8 mmol/L (3.5-5.1); Sodium - POC 143 mmol/L (136-145); Specimen Type - POC Arterial; pH - POC 7.48 (7.35-7.45)
[2024-09-17 08:21] LABS: Glucose - Point of Care 100 mg/dl (70-99)
--- NOTE | 2024-09-17 08:30 | PTCARENOTE ---
Assumed care of patient at 0700. Pt is awake, alert, and oriented. Pt remains SR with HR 70's-80's. BP 97/58 MAP 72. Pulse oximetry 93% on room air. Left lateral chest tube in place, no sign of air leak or crepitus. Pt tolerating clear liquid diet.
Remains due to void. Left lateral chest incision approximated with surgical adhesive, BLIND CLEANER. Right IJ cordis in place with KVO. Remains on insulin gtt per glycemic protocol.
[2024-09-17] MEDS: LOPRESSOR 12.5 MG PO ×2 (08:56→20:22)
[2024-09-17] MEDS: BACTROBAN 2% OINTMENT 1 APPLIC NASAL ×2 (08:56→20:22)
[2024-09-17] MEDS: MAGNESIUM OXIDE 500 MG PO ×2 (08:56→20:23)
[2024-09-17] MEDS: PACERONE 200 MG PO ×3 (08:56→22:12)
[2024-09-17] MEDS: SENOKOT-S 1 TABLET PO ×2 (08:56→20:23)
[2024-09-17] MEDS: PROTONIX 40 MG PO (08:56)
[2024-09-17] MEDS: NEURONTIN 100 MG PO ×3 (08:56→22:10)
[2024-09-17] MEDS: LOW STRENGTH ASPIRIN 81 MG PO (08:56)
[2024-09-17] MEDS: ANCEF 5 IV ×2 (08:57→15:03)
[2024-09-17] MEDS: BRILINTA 90 MG PO ×2 (08:57→20:22)
[2024-09-17] MEDS: TORADOL 15 MG IV (08:57)
[2024-09-17] MEDS: LIDOCAINE 4% PATCH 1 PATCH TOPICAL (08:57)
[2024-09-17 10:17] LABS: Glucose - Point of Care 94 mg/dl (70-99)
--- NOTE | 2024-09-17 11:00 | PTCARENOTE ---
Pt ambulated in dover with cardiac rehab, tolerated well. Left lateral chest tube d/c'd per order. Pt ambulated to bathroom to brush teeth and wash up at sink. Remains SR with HR 79. BP 105/65 MAP 78. Pulse oximetry 94% on room air. Remains on
insulin gtt at this time per glucemic protocol.
--- NOTE | 2024-09-17 12:08 | CM ---
Reviewed chart. Met with Mr. Solomon to review discharge plans. He states he is feeling well and maybe able to go home soon. He states prior to admission he resides with his spouse in a two story home with with four steps to enter. He states he
has a a full flight of steps to get to bedroom/full bathroom. He states he has a powder room on the first floor. He states prior to admission he was independent with ambulation and adls. He ambulated 270 feet independently today. He states he does
not have any DME in the home. He states he has a prescription plan. He states his spouse will be home to assist in his care if needed. We reviewed a home visit by the Transitional Care Nurse. He is agreeable to a home visit. Medical work-up in
progress. The discharge plan is to return home with his spouse a home visit by the Transitional Care Nurse when medically stable.
[2024-09-17] MEDS: COLCHICINE 0.3 MG PO (12:32)
[2024-09-17 12:36] LABS: Glucose - Point of Care 104 mg/dl (70-99)
[2024-09-17 13:10] LABS: Glucose - Point of Care 112 mg/dl (70-99)
[2024-09-17] MEDS: NSS 500 IV (13:26)
[2024-09-17] MEDS: CORDARONE 103 MG IV (13:26)
--- NOTE | 2024-09-17 13:30 | PTCARENOTE ---
Pt called RN into room, reports feeling weak and diaphoretic. Pt reported he had just walked back from the bathroom, had attempted to void but was unable. Pt reports he was having pain while attempting to void. While connecting BP cuff pt became
unresponsive. Staff assist button pushed, KAYLIE Ni and Dr. Martin at bedside. BP 84/48 MAP 59. SR, HR 68. Pt became responsive while laying pt flat. 500mL fluid bolus administered. Assisted pt back to bed. Pt's repeat BP 101/56. Prior to pt calling
RN into room pt was SR with HR 60's-70's, having increased PVC's. Following fluid bolus Amio bolus administered per order.
--- NOTE | 2024-09-17 14:45 | PTCARENOTE ---
Orthostatics done. Supine 101/59 MAP 71, Sitting 106/53 MAP 69, Standing 96/54 MAP 66.
[2024-09-17 14:59] LABS: Glucose - Point of Care 113 mg/dl (70-99)
[2024-09-17] MEDS: NSS IV (15:03)
[2024-09-17 16:53] LABS: Glucose - Point of Care 97 mg/dl (70-99)
[2024-09-17] MEDS: LIPITOR 80 MG PO (16:55)
--- NOTE | 2024-09-17 17:00 | PTCARENOTE ---
Pt remains SR with HR 70's. BP 113/56 MAP 74. Pulse oximetry 96% on room air. Pt ambulated around entire unit with RN without issue. Pt remains due to void. Bladder scan completed for 169.
--- NOTE | 2024-09-17 18:52 | W.PN.ANS.POP ---
Anesthesia Post Operative
- Anesthesia Post Op Note
Vital Signs Stable-See Nursing Note: Yes
Airway Patent: Yes
Adequate Pain Control: Yes
Change in Mental Status: No
Current Postoperative Nausea & Vomiting: No
Anesthesia Complications: No
General Anesthetic Recall: No
Unplanned Admission: No
Post Op Hydration Adequate: Yes
[2024-09-17] MEDS: LR 500 IV (19:14)
--- NOTE | 2024-09-17 20:00 | PTCARENOTE ---
Assumed care of the patient at 1999. Patient OOB to chair, AOx3, pleasant, spouse at bedside. SR on the monitor rate 70's, no ectopy at present, + pulses and no edema noted, heart tones audible. Clear lungs on RA. Normoactive BS, reports good
appetite, no BM yet but passing flatus. Patient is DTV and unable to pass urine due to reported pain; bladder scanned for 275, was able to void 50 mLs about an hour later. Options for pain management discussed, including a urojet for burning
sensation. Questions encouraged and patient autonomy reinforced. L lateral incisions and CT site incision with dressing CDI, tender. Skin otherwise intact. RIJ cordis present infusing KVO, PIV x1. Call king within reach, patient encouraged to ring
for assistance, fall precautions discussed. Assessment of needs ongoing. See nursing work list for additional interventions.
[2024-09-17] MEDS: ROXICODONE 2.5 MG PO (22:15)
[2024-09-18] VITALS (7 sets, daily range): BP systolic 136–157; BP diastolic 76–113; PULSE 71; O2SAT 96–97; BMI 23.5
--- NOTE | 2024-09-18 | PTCARENOTE ---
Patient able to void with some difficulty in the urinal. Reports to RN that he had some blood from the tip of his penis after voiding x2. CVPA aware. Patient made comfortable in bed, call king within reach, assessment of needs ongoing.
--- NOTE | 2024-09-18 02:31 | W.PN.CT ---
Today's Communication / Plan
-
-no acute events overnight
-quintero removed yesterday, voided spontaneously last evening (had some burning)
-tolerating RA
-Brilinta started with h/o PCI
-encourage IS, OOB
-PT/OT
-discharge planning
Assessment / Plan
-
s/p robotic assisted minimally invasive CABG (MEDINA to LAD) on 09/16/[address] Martin - POD #2
-inferior STEMI with MVCAD s/p stent x3 08/05/24 with residual CAD
-HTN
-HLD
Subjective
Procedure
s/p robotic assisted minimally invasive CABG (MEDINA to LAD) on 09/16/[address] Martin
-
Date of Service: September 18, 2024
Objective Data
-
Lab Results
09/18/24 04:21
09/18/24 04:21
PT 17.5 Sec (11.4-14.6) H 09/16/24 15:56
INR 1.38 09/16/24 15:56
APTT 35.0 Sec (23.4-35.0) 09/16/24 15:56
Vital Signs
Vital Signs
Temp Pulse Resp BP Pulse Ox
98 F 69 16 127/81 96
09/18/24 00:05 09/18/24 00:00 09/18/24 00:05 09/17/24 23:30 09/18/24 00:05
CT Intake/Output/Weight
09/17/24 09/17/24 09/18/24
06:59 18:59 06:59
Intake Total 247.9 / 495.4 707.6 / 707.6
Output Total 1515 / 2395 60 / 475 415 / 475
Balance -1267.1 / -1899.6 647.6 / 232.6 -415 / 232.6
SaO2: 96
Physical Exam
-
General: AOx3
Cardiovascular: Regular rate & rhythm
Respiratory: Clear
Incision: Clean, Dry and Intact
Extremities: No Edema
--- NOTE | 2024-09-18 04:00 | PTCARENOTE ---
VSS, patient voiding without difficulty now. OOB to chair
[2024-09-18 04:36] LABS: Hematocrit 35.6 % (39.0-52.0); Hemoglobin 12.3 g/dL (13.0-18.0); Mean Corp Hgb Conc. 34.6 g/dL (33.0-37.0); Mean Corpuscular Hgb 31.9 pg (27.0-31.0); Mean Corpuscular Volume 92.5 fL (80.0-94.0); Platelet Count 167 10^3/uL (130-400); Red Blood Cell Count 3.85 10^6/uL (4.70-6.10); Red Cell Dist. Width 12.7 % (11.5-14.5); White Blood Cell Count 8.3 10^3/uL (4.8-10.8)
[2024-09-18 04:57] LABS: Blood Urea Nitrogen 18 mg/dl (9-20); Calcium 8.8 mg/dl (8.4-10.2); Carbon Dioxide 30 mmol/L (22-30); Chloride 103 mmol/L (98-107); Estimated Creatinine Clearance 96 ml/min; Glucose 112 mg/dl (70-99); Magnesium 2.3 mg/dl (1.6-2.3); Potassium 4.2 mmol/L (3.5-5.1); Sodium 137 mmol/L (135-145); eGFR > 60.00
[2024-09-18] MEDS: TYLENOL 1000 MG PO (05:16)
--- NOTE | 2024-09-18 08:18 | PTCARENOTE ---
assumed care of pt from previous shift RN, sinus rhythm on tele, + peripheral pulses. Lungs clear, pox 97% on RA, coughing and deep breathing encouraged. +bs, tolerating PO intake, voids spontaneously. Cordis and PIV flush easily. Pt denies pain.
Surgical sites stable. Plan of care reviewed w the pt and questions encouraged.
[2024-09-18] MEDS: NEURONTIN 100 MG PO (08:31)
[2024-09-18] MEDS: COLCHICINE 0.3 MG PO (08:31)
[2024-09-18] MEDS: BRILINTA 90 MG PO (08:31)
[2024-09-18] MEDS: PACERONE 200 MG PO (08:31)
[2024-09-18] MEDS: LOPRESSOR 12.5 MG PO ×2 (08:31→08:40)
[2024-09-18] MEDS: SENOKOT-S 1 TABLET PO (08:31)
[2024-09-18] MEDS: MAGNESIUM OXIDE 500 MG PO (08:31)
[2024-09-18] MEDS: PROTONIX 40 MG PO (08:31)
[2024-09-18] MEDS: LOW STRENGTH ASPIRIN 81 MG PO (08:31)
[2024-09-18] MEDS: LIDOCAINE 4% PATCH TOPICAL (08:35)
[2024-09-18] MEDS: BACTROBAN 2% OINTMENT 1 APPLIC NASAL (08:35)
--- NOTE | 2024-09-18 08:50 | W.PN.CD ---
Today's Communication / Plan
-
Transition metoprolol tartrate to metoprolol succinate.
Maintain DAPT.
Colchicine 0.3 mg BID x 3 months.
Please let cardiology know when patient is being discharged so we may arrange his staged PCI.
Impression / Plan
-
Impression/Plan: 64 y/o male with HTN, HLD and CAD s/p PCI of the mRCA and dRCA/RPDA (DK Crush) for inferior STEMI (08/04/2024) admitted for elective MIDCAB of residual LAD stenosis.
#CAD
-Chronic, progressive.
-Prior DK Crush PCI to the dRCA/RPDA (Medtronic [place] 2.0 x 22 to RPDA, Xience Skypoint 2.5 x 38 to dRCA/RPL, KBI with 2.25 and 2.5 NCB).
-S/P MIDCAB with Dr. Martin, 09/16/2024.
-Routine post operative management.
-Encourage incentive spirometry.
-Ambulate.
-DAPT with aspirin/ticagrelor.
-High dose, high potency statin.
-Plan for staged PCI of OM (not during this hospitalization).
#Pericarditis
-Acute, post operative.
-Acknowledges chest pain, worse when recumbent.
-Colchicine 0.3 mg BID x 3 months.
#HTN
-Chronic, stable.
-Currently normotensive to mildly hypotensive.
-Transition metoprolol tartrate to metoprolol succinate 25 mg daily.
#HLD
-Chronic, stable.
-Total cholesterol = 223, LDL = 124, HDL = 39, Triglycerides = 302 (08/05/2024).
-Resume atorvastatin 80 mg daily.
-Goal LDL < 55, triglycerides < 150.
-Repeat blood work in October/November of this year.
Subjective/Interval History:
Weight up 2.4 kg from yesterday (?).
I/O document net + 26.8 mL.
Colchicine 0.3 mg BID started.
DATA:
Surgery, 09/16/2024:
Procedure(s) Performed:
1. Robotic assisted MIDCAB (single-vessel bypass MEDINA in situ to LAD).
2. Robotic assisted harvest of internal mammary artery with anterolateral mini thoracotomy for CABG.
3. Transesophageal echocardiography.
4. Transonic Flowprobe assessment of MEDINA graft.
5. Anesthesia regional block.
Cardiac Catheterization/PCI, 08/04/2024:
CONCLUSIONS
1. Severe triple-vessel coronary artery disease as described with culprit 100% occlusion of the ostial RPDA.
2. Successful IVUS-guided PCI to the RPDA/RPAV bifurcation with DK crush (2.0x22 mm [place] FIDENCIO to RPDA and 2.5x38 mm [place] Xience FIDENCIO to distal RCA into RPAV, KBI with 2.25 and 2.5 mm balloons) overlapped proximally with a 3.5x38 mm [place]undy drug-eluting stent from the proximal to mid RCA post-dilated throughout with a 3.5 mm NC balloon.
3. Mildly elevated LV filling pressure and no aortic stenosis.
Intraoperative YVONNE, 09/16/2024:
CONCLUSIONS
Normal biventricular function with no wall motion abnormalities. LVEF is 55-
60% by visual inspection.
Grossly normal cardiac valves.
Normal size aorta.
POST OPERATIVE FINDINGS
S/P MIDCAB
Grossly unchanged exam.
Physical Exam
Vital Signs/Labs
Vital Signs
Temp Pulse Resp BP Pulse Ox
37.1 C 74 16 137/76 97
09/18/24 08:10 09/18/24 08:10 09/18/24 08:10 09/18/24 08:10 09/18/24 08:23
09/16/24 09/17/24 09/18/24
11:59 11:59 11:59
Actual Weight 62.7 kg 63.7 kg 66.1 kg
09/18/24 04:21
09/18/24 04:21
PT 17.5 Sec (11.4-14.6) H 09/16/24 15:56
INR 1.38 09/16/24 15:56
APTT 35.0 Sec (23.4-35.0) 09/16/24 15:56
Magnesium 2.3 mg/dl (1.6-2.3) 09/18/24 04:21
Physical Exam
Constitutional: No acute distress and Comfortable
EENT: Anicteric and Moist mucous membranes
Cardiovascular: Rhythm & rate is regular, Pedal edema is absent, JVD pressure is normal, S1S2 is normal and Murmur/rub/gallop absent
Respiratory: Respiratory effort normal, Lungs clear to auscul., Wheeze Absent, Crackles Absent and Rhonchi Absent
GI: Soft, Distention absent, Flat, Non tender and Normal bowel sounds
Neuro/Psych: AO x 3
Data Reviewed
-
Date of Service: September 18, 2024
Medical Decision Making: Reviewed Test Results, Independent Historian Assessment and Test Interpretation
EKG: Tracing Personally Visualized and interpreted and Report Reviewed by me
Echo: Report Reviewed by me
X-Ray/CT/US/MRI/NUC/PET: Image Personally Visualized and interpreted and Report Reviewed by me
Medical Tests (PFT, Pathology etc): Report Reviewed by me
Labs: Labs Reviewed by me
Old Records: Reviewed
--- NOTE | 2024-09-18 09:29 | W.DCSUMMARY ---
Discharge Summary
Discharge Data
Date of Admission: 09/16/24
Date of Discharge: 09/18/24
Total time spent discharging patient (in min): 45
-
Pending Results: No
Hospital Course
Primary care physician:
Dr. Smooth Ng
Outpatient domestic housekeeper:
Dr. Abad
Inpatient consultants:
CBC, entry level receptionist
Procedures:
1. RA MIDCAB (MEDINA-LAD)
Primary Diagnosis:
1. Coronary Artery Disease with proximal LAD involvement and prior STEMI requiring PCI to the RCA
Secondary Diagnoses:
1. acute post-op hypotension
2. NSVT
3. acute post-op PACs
4. Hypertension
5. Hyperlipidemia
HPI: 64-year-old male who over 30 days ago presented to the hospital with a STEMI to the RCA. He underwent emergent stenting with excellent result. He had residual coronary disease. Given his young age and approximately disease he was referred
for hybrid coronary revascularization as he did not want sternotomy. The STS risk was discussed with the patient in the office and the shared decision making was to pursue a single-vessel bypass using his mammary artery to his LAD via a mini
invasive approach. He presented electively on 09/[address] Martin.
Hospital course: patient presented electively on 09/16 for robotic assisted MIDCAB with Dr. Martin. Postoperatively he returned to the CVICU extubated for the remainder of his recovery. Patient was initially hypertensive and was started on Cardene
for blood pressure support. On 09/17 postoperative day 1 patient's chest tube was removed he ambulated and was started on colchicine for acute pericarditis. Throughout the afternoon patient had an episode of hypotension and fainted and was
subsequently given 500 mL of lactated Ringer's. Patient's blood pressure improved and later ambulated without issue. Due to low urine output patient was given another 500 mL of lactated Ringer's in the evening. On 09/18 postoperative day 2,
patient remained hemodynamically stable and was deemed stable for discharge home. Chest x-ray remained stable. CBC office was contacted and will call the patient next week to schedule his future PCI procedure.
Home medication changes:
see below
Discharge Plan
-
Patient Disposition: Home (Routine Discharge)
Discharge Diagnosis/Procedures: RA MIDCAB
Condition: Good
Activity: No strenuous activity
Driving Restrictions: No driving for 2 weeks
Bathing Restrictions: OK to Shower
Other Services: Cardiac Rehab
Specialty Instructions: Weigh Daily- Call MD for wt gain/loss 3 lbs overnight/5 lbs in 1 week
Activity Restrictions/Additional Instructions:
[facility] cardiology will call next week about stent placement timing. Should be around 30 days
ACTIVITY:
-No strenuous activity: no heavy lifting, pushing, pulling anything over 15 pounds for 2 weeks
-continue to use stairs as tolerated
DRIVING RESTRICTIONS:
-No driving for 2 weeks or until approved by your surgeon
WOUND CARE:
-Shower daily. Use soap & water.
-No lotions, creams or powders on incision area.
DIET:
-continue a low fat/low cholesterol diet.
-IF you are diabetic, continue carb controlled diet.
CARDIAC REHAB:
-Please make appointment to start in 5-6 weeks with your local hospital program. (See Cardiac Rehabilitation Discharge Booklet).
SPECIALTY INSTRUCTIONS:
-Weigh yourself daily. Call your physician for any weight gain/loss of 3 lbs overnight or 5 lbs in one week.
-REPORT any clicking noise or uneven appearance of your sternum to your surgeon immediately.
-If you smoke, you are instructed to quit. The [place] smoking hotline phone number is [phone]
Referrals:
CT Transitional Care Nurse [Outside] - in one to two days
(
The Cardiothoracic Transitional Care Nurse will call you to set up a visit in 1-2 days.)
[facility]. Cardiac Rehab [Outside] - 10/07/24 1:00 pm
(Cardiac Rehab Orientation appointment is on October 07 at 1pm.
The Cardiac Rehab gym is located on the first floor of the [facility].)
Smooth Ng DO [Family Provider] - in four to six weeks (Please make an appointment in four to six weeks. )
Gogo Mendoza CRNP [Specified Professional Personl] -
Becki Lambert CRNP [Specified Professional Personl] - 09/30/24 1:15 pm
Additional Discharge Medication Instructions: please take colchicine for 30 days total
Please note that your lopressor dose has changed and do not resume your losartan until directed by a medical professional
Prescriptions:
New
acetaminophen 325 mg Tablet
650 mg PO Q4HPRN PRN (Reason: mild pain,headache,temp >101F ) Qty: 0 0RF
gabapentin 100 mg Capsule
100 mg PO TID Qty: 30 0RF
colchicine 0.6 mg Tablet
0.3 mg PO DAILY Qty: 30 0RF
oxycodone 5 mg Tablet
2.5 mg PO Q4HPRN PRN (Reason: moderate to severe pain) Qty: 15 0RF
Continued
cyanocobalamin (vitamin B-12) 1,000 mcg Tablet
1,000 mcg PO DAILY
alum-mag hydroxide-simeth 200-200-20 mg/5 mL Suspension
5 ml PO DAILYPRN PRN (Reason: heartburn)
Patient Comments:
takes PRN
nitroglycerin 0.4 mg Tablet, Sublingual
0.4 mg sublingual [id number] PRN (Reason: Chest pain) Qty: 25 5RF
Patient Comments:
PRN
atorvastatin 80 mg tablet
80 mg PO QPM
aspirin 81 mg tablet,chewable
81 mg PO DAILY
Brilinta 90 mg tablet
90 mg PO BID
Changed
metoprolol tartrate 50 mg tablet
25 mg PO BID Qty: 0 0RF
Held
valsartan 160 mg tablet
160 mg PO DAILY
Hold Instructions: Do not resume until directed by a medical professional
Discontinued
zolpidem [Ambien] 10 mg Tablet
5 mg PO HS
Patient Comments:
no pdmp records or pharmacy records in the last 2 years starting with today date 08/04/24
Discharge Orders:
Discharge Patient (As Directed); Ordered 09/18/24
Ordered By: Bell Sierra
Care Plan Goals
Care Plan Goals:
Problem: Readiness for enhanced knowledge related to diagnosis and treatment plan
Goal: Understand your diagnosis and treatment plan needs, including medications if applicable.
Instructions: Know your diagnosis, underlying causes and treatment plan options, including medications if applicable. Consult with your health care team to learn about your diagnosis and treatment plan, including medications if applicable.
Discharge Date and Time
Print Language: GERMAN
--- NOTE | 2024-09-18 10:45 | PTCARENOTE ---
cordis removed without incident
--- NOTE | 2024-09-18 10:54 | CM ---
Reviewed chart. Met with Mr. Solomon to review discharge plans. He states he feels well and maybe able to go home. We reviewed a home visit by the Transitional Care Nurse. He is agreeable to home visit. Prior to admission he resides with his
spouse in a two story home with four steps to enter. He has a full lfight of steps to get to bedroom/full bathroom. He has a powder room on the first floor. Prior to admission he was independent with ambulation and adls. He does not have any DME in
the home. His spouse will be home to assist in his care if needed. He has a prescription plan. Medical work-up in progress. The discharge plan is to return home with his spouse and a home visit by the Transitional Care Nurse when medically stable.
--- NOTE | 2024-09-18 12:18 | PTCARENOTE ---
post op dressings removed. pt tolerated shower.
[2024-09-18] MEDS: COZAAR 50 MG PO (12:35)
--- NOTE | 2024-09-18 13:05 | PTCARENOTE ---
discharge instructions, follow up appointments and medication list reviewed w the pt, questions encouraged.
== END 2024-09-18 13:22 | disposition home or self-care (01) | DRG 236 ==
LOC: CVICU 07:13
PROVIDERS: Anesthesiology; Physician Assistant Medical; ADMITTING PHYSICIAN Thoracic Surgery (Cardiothoracic Vascular Surgery); CONSULT PHYSICIAN Internal Medicine; FAMILY PHYSICIAN Student in an Organized Health Care Education/Training Program; OTHER PHYSICIAN Internal Medicine Cardiovascular Disease
PROC: B24BZZ4 Ultrasonography of Heart with Aorta, Transesophageal (ICD-10-PCS; 2024-09-16)
PROC: 8E0W0CZ Robotic Assisted Procedure of Trunk Region, Open Approach (ICD-10-PCS; 2024-09-16)
PROC: 02100Z9 Bypass Coronary Artery, One Artery from Left Internal Mammary, Open Approach (ICD-10-PCS; 2024-09-16)
DX: I25.10 Atherosclerotic heart disease of native coronary artery without angina pectoris (principal); I47.20 Ventricular tachycardia, unspecified; I30.9 Acute pericarditis, unspecified; I10 Essential (primary) hypertension; E78.5 Hyperlipidemia, unspecified; M54.50 Low back pain, unspecified; J43.9 Emphysema, unspecified; G47.00 Insomnia, unspecified; I95.81 Postprocedural hypotension; D64.9 Anemia, unspecified; I25.2 Old myocardial infarction; Z79.02 Long term (current) use of antithrombotics/antiplatelets; Z79.82 Long term (current) use of aspirin; Z79.899 Other long term (current) drug therapy; Z82.49 Family history of ischemic heart disease and other diseases of the circulatory system; Z87.891 Personal history of nicotine dependence; Z95.5 Presence of coronary angioplasty implant and graft
CPT/HCPCS: 36415; 71045; 71046; 80048; 80053; 81003; 81015; 82248; 82330; 82565; 82805; 82810; 82947; 82962; 83036; 83735; 84132; 84302; 84520; 85014; 85018; 85025; 85027; 85049; 85610; 85730; 86850; 86900; 86901; 86920; 87070; 93005; 93312; 93320; 93325; 93880

== ENCOUNTER 2024-10-19 06:09 | Day surgery (SDC) | payer BC, SELFPAY ==
[2024-10-05 09:30] VITALS: BMI 22.8
[2024-10-05 09:52] LABS: % Basophils 1.6 % (0-2); % Eosinophils 8.8 % (0-6); % Immature Granulocytes 0.2 % (0-0.5); % Lymphocytes 30.4 % (20.5-51.1); % Monocytes 6.3 % (1.7-9.3); % Neutrophils 52.7 % (42.2-75.2); Absolute Basophils 0.1 10^3/uL (0-0.2); Absolute Eosinophils 0.5 10^3/uL (0-0.7); Absolute Lymphocytes 1.7 10^3/uL (1.2-3.4); Absolute Monocytes 0.4 10^3/uL (0.1-0.6); Hematocrit 39.6 % (39.0-52.0); Mean Corp Hgb Conc. 35.4 g/dL (33.0-37.0); Mean Corpuscular Hgb 32.1 pg (27.0-31.0); Mean Corpuscular Volume 90.8 fL (80.0-94.0); Nucleated Red Blood Cells % 0 % (-); Platelet Count 283 10^3/uL (130-400); Red Blood Cell Count 4.36 10^6/uL (4.70-6.10); Red Cell Dist. Width 12.3 % (11.5-14.5); White Blood Cell Count 5.6 10^3/uL (4.8-10.8)
[2024-10-05 10:55] LABS: ALT (SGPT) 32 U/L (0-50); AST (SGOT) 24 U/L (17-59); Albumin 4.5 g/dl (3.5-5.0); Alkaline Phosphatase 72 U/L (38-126); Blood Urea Nitrogen 13 mg/dl (9-20); Calcium 9.5 mg/dl (8.4-10.2); Carbon Dioxide 25 mmol/L (22-30); Chloride 104 mmol/L (98-107); Estimated Creatinine Clearance 96 ml/min; Glucose 106 mg/dl (70-99); Potassium 4.8 mmol/L (3.5-5.1); Sodium 141 mmol/L (135-145); Total Bilirubin 0.8 mg/dl (0.2-1.3); Total Protein 6.9 g/dl (6.3-8.2); eGFR > 60.00
[2024-10-19] VITALS (14 sets, daily range): BP systolic 111–144; BP diastolic 66–96; BMI 22.8
[2024-10-19] MEDS: NSS 192 ML IV (07:25)
[2024-10-19] MEDS: LOPRESSOR 25 MG PO (11:41)
[2024-10-19] MEDS: LYRICA 50 MG PO (11:41)
[2024-10-19] MEDS: COZAAR 50 MG PO (11:41)
--- NOTE | 2024-10-19 14:30 | W.PN.UPDATE ---
Update Note
Progress Note Update
Pt seen post LCx/OM PCI w/FIDENCIO x3. Left radial cath site without ht/bleeding. OOB ambulating, urinating without difficulty. Post EKG NSR w/inferlat TWI as before, no acute changes. Pt understands importance of DAPT w/asa, brilinta. Cardiac rehab
consulted and already on their schedule for next week. Followup at [facility] arranged. Home later today if cath site/tele remain stable.
Pt had been treated with colchicine post MIDCAB for pleuritic/pericarditic type chest pain. This had improved on the colchicine but now has stopped it and the pain has returned at a milder level. Will resume colchicine 0.3mg daily for the next 3
months, and then stop. Rx sent to pharmacy.
== END 2024-10-19 16:30 | disposition home or self-care (01) ==
LOC: CATH 06:09
PROVIDERS: ATTENDING PHYSICIAN Student in an Organized Health Care Education/Training Program; FAMILY PHYSICIAN Student in an Organized Health Care Education/Training Program; OTHER PHYSICIAN Student in an Organized Health Care Education/Training Program
DX: I25.10 Atherosclerotic heart disease of native coronary artery without angina pectoris (principal); Z95.5 Presence of coronary angioplasty implant and graft; I25.2 Old myocardial infarction; Z95.1 Presence of aortocoronary bypass graft; I10 Essential (primary) hypertension; E78.5 Hyperlipidemia, unspecified; Z87.891 Personal history of nicotine dependence
CPT/HCPCS: 92978; 99152; 99153; 36415; 80053; 85025; 85347; 93005; 93459; C1725; C1753; C1874; C1887; C1894; C9600; C9601; Q9967

== ENCOUNTER → 2024-10-28 08:44 | Outpatient (REF) | payer BC, SELFPAY ==
[2024-10-28 12:54] LABS: HDL Cholesterol 53 mg/dl; LDL Cholesterol, Calculated 64 mg/dl; Total Cholesterol 139 mg/dl (50-199); Triglyceride 111 mg/dl (10-149); Very Low Density Lipoprotein 22 mg/dl (0-30)
== END ==
LOC: REG 08:44
PROVIDERS: ATTENDING PHYSICIAN Nurse Practitioner; FAMILY PHYSICIAN Student in an Organized Health Care Education/Training Program
DX: E78.5 Hyperlipidemia, unspecified (principal)
CPT/HCPCS: 36415; 80061

== ENCOUNTER 2024-11-06 09:46 | Outpatient (RCR) | payer BC, SELFPAY ==
--- NOTE | 2024-10-19 19:39 | ITS.CL.PN ---
Truck Driving - Procedure Note
Procedure
Procedure Note:
CARDIAC CATHETERIZATION REPORT
Date of Procedure: 10/19/2024
Referring: Dr. Archie Martin MD
Indication: Staged revascularization status post STEMI
PROCEDURE(S)
1. left heart catheterization
2. coronary angiography
3. bypass graft angiography
4. IVUS OM1
5. IVUS OM2
6. PCI with FIDENCIO to OM1
7. PCI with FIDENCIO to OM2 and proximal LCx
ACCESS: 6F right radial artery (closure: radial band)
CATHETERS
1. 6F NAHUN
2. 6F JR4
3. 6F XB3.5 guide catheter
MODERATE SEDATION: 90 minutes of moderate sedation was utilized. An independent associate medical director was present to assist with and help manage the patient's level of consciousness and physiologic status.
HEMODYNAMIC DATA
LV 110/7 (EDP 13) mmHg
AO 128/75 (mean 100) mmHg
CORONARY ANGIOGRAPHY
Dominance: Right
LM: Large, normal
LAD: Moderate caliber vessel giving rise to a small D1 and small D2. There is diffuse disease moderate in the proximal to mid LAD and diffuse severe disease in the proximal aspect of the D1. There is competitive flow from the MEDINA visualized in the
mid LAD.
LCx: Large vessel giving rise to a moderate caliber OM1 and moderate caliber branching OM2. There is a long 80% stenosis in the OM1 and a focal 70% stenosis in the OM2. The proximal circumflex is of reduced caliber suggesting significant plaque.
RCA: large vessel giving rise to a moderate caliber RPDA and large RPL branch. There are stents from the RPDA/RPL bifurcation extending back to the proximal RCA which are widely patent.
BYPASS GRAFT ANGIOGRAPHY:
MEDINA-LAD: the MEDINA is taken as a pedicle and forms an anastomosis with the mid-LAD. The MEDINA is widely patent.
PCI with FIDENCIO to OM1/OM2/proximal LCx
Heparin was given to achieve ACT greater than 300. The left main was engaged with a XB 3.5 guide catheter and a Runthrough coronary wire placed in the OM1. Initial lesion preparation was performed with a 2.0 mm balloon. Given that the OM1 would need
to be stented back to its ostium, the decision was made to proceed with PCI of the OM2 first to avoid difficulty with readvancing equipment after stenting the OM1 ostium. IVUS was performed of both branch vessels demonstrating 2.5 mm reference
diameters in both the OM1 and OM 2 and severe diffuse lipophilic plaque including in the short segment of the proximal circumflex. Initial lesion preparation of the OM2 was performed with a 2.0 mm balloon followed by stenting with a 2.5 x 15 [place] FIDENCIO taken to 16 ileana. The stent appeared angiographically well-expanded, however there appeared to be wire bias present in the OM1 proximal to the stent which improved with retraction of the wire. Thus we proceeded with stenting of the OM1
after readvancing the wire in the OM 2 for protection. A 3.0 x 28 mm Xience Skypoint FIDENCIO was advanced and deployed at 16 ileana. Post dilation was performed with a 2.5 NC to high-pressure. There was now worse stenosis at the proximal aspect of the OM2.
After wire removal and IC nitro this is did fully resolved suggesting it was plaque shift. Thus the decision was made to extend the stent in the OM2 back across the OM1 to the ostium of the circumflex. Based on previous IVUS, the proximal circumflex
reference diameter was 3.5 mm. After predilation with a 2.5 mm balloon, a 2.5 x 18 mm [place] drug-eluting stent was advanced in the OM2 and deployed at 16 ileana followed by ballooning of the overlap with the stent balloon. The jailed OM1 wire
was removed and rewired through stent struts. After ballooning open the stent struts with a 1.5 balloon, 2.5 mm kissing balloons were able to be advanced over both wires and simultaneous kissing balloon inflation performed to 12 ileana. POT was
performed in the proximal circumflex with a 3.5 x 8 mm NC balloon taken to high-pressure. Final angiographic result was excellent. Final IVUS demonstrated full stent expansion and coverage of the proximal circumflex into the OM1 branch. Final
angiographic result was outstanding. The wire and guide were removed and a TR band placed.
RADIATION: dose 1190 mGy; DAP 95 Gy*cm2; fluoroscopy time 32.4 min
CONCLUSIONS
1. Coronary angiography as described with patent MEDINA to LAD and patent prior stents in the RCA.
2. Normal LV filling pressure and no aortic stenosis
3. Successful bifurcation PCI of the proximal circumflex, OM1, and OM2 with overlapping 2.5 x 15 and 2.5 x 18 mm drug-eluting stents in the OM2 back to proximal circumflex and 2.5 x 28 mm drug-eluting stent in the OM1 with kissing balloon inflation
and pot with a 3.5 mm balloon in the circumflex.
RECOMMENDATIONS
1. Continue extended DAPT with aspirin and ticagrelor for 1 year
2. Aggressive secondary prevention of coronary artery disease with high intensity statin for goal LDL at least less than 55.
Copy to: Dr. Nano Abad MD (process design engineer); Dr. Smooth Ng DO (PCP)
Signed: Thee Rea MD, PhD
== END 2024-11-06 23:59 | disposition home or self-care (01) ==
LOC: CRHB 09:46
PROVIDERS: ATTENDING PHYSICIAN Student in an Organized Health Care Education/Training Program
DX: I25.10 Atherosclerotic heart disease of native coronary artery without angina pectoris (principal); Z95.1 Presence of aortocoronary bypass graft; Z95.5 Presence of coronary angioplasty implant and graft; I25.2 Old myocardial infarction
CPT/HCPCS: 93797; 93798

== ENCOUNTER 2024-12-07 10:05 | Outpatient (RCR) | payer BC, SELFPAY | END 2024-12-07 23:59 | disposition home or self-care (01) | LOC: CRHB 10:05 | PROVIDERS: ATTENDING PHYSICIAN Student in an Organized Health Care Education/Training Program | DX: I25.10 Atherosclerotic heart disease of native coronary artery without angina pectoris (principal); Z95.1 Presence of aortocoronary bypass graft; Z95.5 Presence of coronary angioplasty implant and graft; I25.2 Old myocardial infarction | CPT/HCPCS: 93797; 93798 ==

== ENCOUNTER 2024-12-16 09:41 | Outpatient (RCR) | payer BC, SELFPAY | END 2024-12-16 15:05 | disposition home or self-care (01) | LOC: CRHB 09:41 | PROVIDERS: ATTENDING PHYSICIAN Student in an Organized Health Care Education/Training Program | DX: I25.10 Atherosclerotic heart disease of native coronary artery without angina pectoris (principal); Z95.1 Presence of aortocoronary bypass graft; Z95.5 Presence of coronary angioplasty implant and graft; I25.2 Old myocardial infarction | CPT/HCPCS: 93797; 93798 ==

== ENCOUNTER → 2025-03-24 10:23 | Outpatient (REF) | payer BC, SELFPAY ==
[2025-03-24 11:55] LABS: ALT (SGPT) 23 U/L (0-50); AST (SGOT) 23 U/L (17-59); Albumin 4.4 g/dl (3.5-5.0); Alkaline Phosphatase 58 U/L (38-126); Blood Urea Nitrogen 12 mg/dl (9-20); Calcium 9.3 mg/dl (8.4-10.2); Carbon Dioxide 29 mmol/L (22-30); Chloride 105 mmol/L (98-107); Glucose 98 mg/dl (70-99); HDL Cholesterol 45 mg/dl; LDL Cholesterol, Calculated 51 mg/dl; Potassium 4.8 mmol/L (3.5-5.1); Sodium 141 mmol/L (135-145); Total Protein 6.8 g/dl (6.3-8.2); Very Low Density Lipoprotein 14 mg/dl (0-30); eGFR > 60.00
== END ==
LOC: REG 10:23
PROVIDERS: ATTENDING PHYSICIAN Student in an Organized Health Care Education/Training Program; FAMILY PHYSICIAN Student in an Organized Health Care Education/Training Program
DX: I25.10 Atherosclerotic heart disease of native coronary artery without angina pectoris (principal)
CPT/HCPCS: 36415; 80053; 80061